=== PATIENT | male | born 1940 | race Caucasian/White ===

== ENCOUNTER 2017-07-21 19:38 | Emergency (ER) | payer OTHER, MEDICARE, SELFPAY | END 2017-07-21 21:39 | disposition home or self-care (01) | PROVIDERS: Emergency Provider Emergency Medicine; Family Provider Family Medicine; Visit Provider Emergency Medicine | DX: S09.90XA Unspecified injury of head, initial encounter (principal); S00.81XA Abrasion of other part of head, initial encounter; S00.83XA Contusion of other part of head, initial encounter; I10 Essential (primary) hypertension; K21.9 Gastro-esophageal reflux disease without esophagitis; Z79.899 Other long term (current) drug therapy; V03.00XA Pedestrian on foot injured in collision with car, pick-up truck or van in nontraffic accident, initial encounter; Y92.481 Parking lot as the place of occurrence of the external cause | CPT/HCPCS: 70450; 70486; 72125; 81001; 99283 ==

== ENCOUNTER → 2018-08-29 13:05 | Outpatient (POV) | payer MEDICARE, OTHER, SELFPAY | PROVIDERS: Visit Provider Dermatology | DX: Z00.00 Encounter for general adult medical examination without abnormal findings (principal) ==

== ENCOUNTER → 2018-09-27 14:42 | Outpatient (CLI) | payer MEDICARE, OTHER, SELFPAY ==
--- NOTE | 2018-09-27 14:49 | XR_ITS ---
XR chest 2V HISTORY: Hypertension ITS.REASON: HTN, PRE OP ORDERING PHYSICIAN: Kelsey Graff MD PATIENT AGE: 78 years COMPARISON: 10/07/2016 FINDINGS: The cardiomediastinal silhouette and pulmonary vascularity are within normal limits. The lungs are clear without infiltrates, suspicious nodules, or pleural effusions. Hypertrophic/arthritic changes are present involving the right acromioclavicular joint. There is ankylosis of the thoracic spine. IMPRESSION: 1. No acute finding. 2. Degenerative changes of the thoracic spine and right shoulder
== END ==
PROVIDERS: PCP Emergency Medicine; Visit Provider Emergency Medicine
DX: Z01.818 Encounter for other preprocedural examination (principal)
CPT/HCPCS: 71046; 93005

== ENCOUNTER 2018-11-16 14:35 | Inpatient (IN) ==
--- NOTE | 2018-11-16 15:22 | History & Physical Report ---
*Admission Date: 11/16/18 *Chief complaint: shortness of breath *History of present illness: Patient is a 78 year old male presented to our office with shortness of breath that is ongoing for the past 2 days with worsening nature today. He mentioned that he had to stop multiple times today before he presented to our office from the parking lot. 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 His oxygen saturation at our office was 85-88% RA and he was put on 4L of oxygen in order to maintain oxygen saturation of 90%. He denied having any nausea, vomiting, diarrhea but mentioned that his food is not tasting right for him for the past few days. He is known to be in remission from his stage I colon cancer s/p hemicolectomy. His last surveillance was in 2016 and was WNL. He is due for another colonoscopy this year. Given his high risk factors for PE and that his Wells score was 8.5, patient was admitted to the hospital and PE workup was initiated. He was also given initial dose of Lovenox while awaiting for CT results. [facility] History I have reviewed the patient's past medical history: Yes Medical History: Reports:: Gall Bladder Disease, Gastroesophageal Reflux Disease(GERD), Hypertension *Have you ever received a pneumonia vaccine?: Yes (2016 Prevnar ) *Have you received a flu vaccine this season?: No (pt decision) Other Medical History: Reports: Arthritis, Other (colon cancer, melanoma of nose) Laterality Cases: Right: Other (right hemicolectomy), Bilateral: Cataract Other Surgeries: Yes: Appendectomy, Cholecystectomy - *Social History Smoking Status: Never smoker Alcohol Intake: never *Occupational Status:: retired *Travel in the last 8 weeks: None - Psychiatric History Expresses thoughts of harming self/others: None Suicide Plan Description: No Plan Family Hx:: No significant family history Review of Systems - Constitutional Reports malaise, Reports weakness - Eyes Denies blurry vision - ENT Denies abnormal hearing, Denies dizziness, Denies nasal congestion - *Cardiovascular Reports shortness of breath, Reports shortness of breath with activity, Reports leg swelling (right +1 edema), Denies chest pain, Denies chest pain at rest, Denies chest pain with activity, Denies irregular heart rhythm - *Respiratory Reports cough, Denies change in phlegm color, Denies chest congestion - *Gastrointestinal Reports heartburn, Denies abdominal pain, Denies belching - *Genitourinary Denies difficulty urinating, Denies difficulty with ejaculations - *Musculoskeletal Reports joint pain (multiple), Denies abnormal walking - Integumentary/Breasts Reports other (s/p biopsied lesion on left nose), Denies hair loss, Denies changing lesions - *Neurologic Denies abnormal walking, Denies abnormal hearing, Denies abnormal movements - Psychiatric Denies abnormal sleep pattern - Endocrine Denies cold intolerance, Denies excessive sweating - Hematologic/Lymphatic Denies easy bleeding, Denies easy bruising - Allergic/Immunologic Denies GI upset with certain foods Meds Allergies Allergy/AdvReac Type Severity Reaction Status Date / Time No Known Allergies Allergy Unverified 07/21/17 19:50 Exam - *Routine HEENT Exam Head: Present: normocephalic Eye: Present: EOMI, PERRL ENT: Present: mucous membranes moist - *Routine Neck Exam Present: supple. Absent: lymphadenopathy - *Routine Respiratory Exam Present: CTA bilaterally, respiratory distress (85% on RA) - *Routine Cardiovascular Exam Present: Normal S1, Normal S2, tachycardia - *Routine Abdominal Exam Present: soft, normoactive bowel sounds. Absent: tenderness - *Routine Extremities Exam Present: edema (right lower leg), normal capillary refill - *Routine Skin Exam Present: erythema, lesions (left nose) - *Routine Neurological Exam Present: alert, oriented X3 Assessment and Plan (1) Acute respiratory failure with hypoxia Current visit: Yes Status: Acute Category: Medical Code(s): J96.01 - Acute respiratory failure with hypoxia (2) At high risk for pulmonary embolism Current visit: Yes Status: Acute Category: Medical Code(s): Z91.89 - Other specified personal risk factors, not elsewhere classified (3) Essential hypertension Current visit: Yes Status: Acute Category: Medical Code(s): I10 - Essential (primary) hypertension (4) Hx of colon cancer, stage I Current visit: Yes Status: Acute Category: Medical Code(s): Z85.038 - Personal history of other malignant neoplasm of large intestine (5) Melanoma in situ of nose Current visit: Yes Status: Acute Category: Medical Code(s): D03.39 - Melanoma in situ of other parts of face (6) GERD (gastroesophageal reflux disease) Current visit: Yes Status: Acute Category: Medical Code(s): K21.9 - Gastro-esophageal reflux disease without esophagitis (7) Leg edema, right Current visit: Yes Status: Acute Category: Medical Code(s): R60.0 - Localized edema - Assessment and plan all Dx Assessment and Plan for all problems:: lovenox x 1, will await CT results and US of leg. will provide oxygen supplementation; continue home meds.
[2018-11-16 15:48] LABS: Basophils % 0.1 % (0.1-2.0); Eosinophils % 0.4 % (0.1-12.0); Hematocrit 43.1 % (42.0-52.0); Hemoglobin 14.4 g/dL (14.1-18.0); Lymphocytes # 0.6 K/mm3 (0.7-4.5); Lymphocytes % 5.2 % (10-50); Mean Corpuscular HGB Conc 33.5 g/dL (31.8-35.4); Mean Corpuscular Hemoglobin 29.9 pg (27.0-31.2); Mean Corpuscular Volume 89.3 fl (80-94); Mean Platelet Volume 7.3 fl (7.4-10.4); Monocytes # 0.5 K/mm3 (0.1-1.0); Monocytes % 4.8 % (1.7-9.3); Neutrophils % 89.6 % (37.0-80.0); Platelet Count 212 K/mm3 (142-424); Red Blood Count 4.83 M/mm3 (4.60-6.20); Red Cell Distribution Width 13.1 % (11.5-17.5); White Blood Count 11.1 K/mm3 (4.8-10.8)
[2018-11-16 15:58] LABS: Albumin Level 2.8 gm/dL (3.4-5.0); Albumin/Globulin Ratio 0.7 (1.1-1.8); Anion Gap 14.5 mEq/L (5-15); Bilirubin,Total 0.9 mg/dL (0.2-1.0); Globulin 4.3 gm/dl (1.3-3.2); Potassium 4.5 mmoL/L (3.5-5.1); Total Protein,Serum 7.1 gm/dL (6.4-8.2)
[2018-11-16 16:04] LABS: ABG Base Excess -2.5 mmol/L (-2.4-2.3); ABG HCO3 21.1 mmhg (22.0-26.0); ABG Oxygen Saturation 94 % (90-100); ABG PCO2 29.3 mmhg (35.0-45.0); ABG PH 7.48 mmol/L (7.35-7.45); ABG PO2 66.6 mmhg (80-100)
--- NOTE | 2018-11-16 16:05 | Non-Invasive Vascular Report ---
"Venous Exam Indications: 415.19 Other pulmonary embolism and infarction. 786.05 Shortness of breath. IMPRESSIONS 1. There is no evidence of significant Reflux. 2. No evidence of deep or superficial vein thrombosis involving the right lower extremity Right lower extremity venous duplex evaluation. Doppler flow study including spectral analysis, color and méndez scale imaging. Location: Bedside. Patient status: Inpatient. CRITICAL FINDINGS - Reported to: Carolina MOORE - Read back and verified. - 11/16/18 - 1600 - None Tables: Venous flow and imaging: + +-------+ + |Location |Overall|Flow properties | + +-------+ + |Right common femoral |Patent |Normal phasicity; spontaneous; | | | |normal augmentation; compressible| + +-------+ + |Right saphenofemoral junction|Patent |Compressible | + +-------+ + |Right profunda femoral |Patent |Compressible | + +-------+ + |Right femoral |Patent |Normal phasicity; spontaneous; | | | |normal augmentation; compressible| + +-------+ + |Right greater saphenous |Patent |Normal phasicity; spontaneous; | | | |normal augmentation; compressible| + +-------+ + |Right popliteal |Patent |Normal phasicity; spontaneous; | | | |normal augmentation; compressible| + +-------+ + |Right posterior tibial |Patent |Compressible | + +-------+ + |Right peroneal |Patent |Compressible | + +-------+ + |Right gastrocnemius |Patent |Compressible | + +-------+ + |Right soleal |Patent |Compressible | + +-------+ + (Report amended ) Electronically signed by: Shin Chiang [id number]"
[2018-11-16 16:06] LABS: Allen's Test ACCEPTABLE; Oxygen 4 LPM %
[2018-11-16 16:23] LABS: Lymphocytes % 6 % (10-50); Monocytes % 4 % (2-9); Neutrophils % 90 % (42-76); RBC Morphology Normal; Total Cells Counted 100
--- NOTE | 2018-11-16 16:23 | Pharmacy Consult Notes ---
[facility] Pharmacy VTE Monitoring - Patient Demographics Admission date: 11/16/18 Report Date: 11/16/18 Time: 16:22 Allergies/Adverse Reactions: Patient Allergies No Known Allergies Allergy (Unverified 07/21/17 19:50) Height: 1.85 m Weight: 99.393 kg Patient Problems: Current Active Problems (Updated 11/18/18 @ 10:39 by Kelsey Unger MD) At high risk for pulmonary embolism (Acute) Acute respiratory failure with hypoxia (Acute) Essential hypertension (Acute) Hx of colon cancer, stage I (Acute) Melanoma in situ of nose (Acute) GERD (gastroesophageal reflux disease) (Acute) Leg edema, right (Acute) Bilateral pneumonia (Acute) Bilateral pulmonary embolism (Acute) Candidal pneumonia (Acute) - VTE Risk Labs: VTE Related Lab Results Hgb 14.4 g/dL (14.1-18.0) 11/16/18 15:30 Hct 43.1 % (42.0-52.0) 11/16/18 15:30 Plt Count 212 K/mm3 (142-424) 11/16/18 15:30 BUN 17 mg/dL (7-18) 11/16/18 15:30 Creatinine 1.22 mg/dL (0.70-1.30) 11/16/18 15:30 Estimated Creat Clear 70 mL/min (50-200) 11/16/18 15:30 Clinical Trial Participant: No - Prophylaxis VTE Prophylaxis Ordered?: Yes Types of VTE Prophylaxis: Pharmacological Location of Applied Device: Not Applicable Pharmacologic Type: Enoxaparin - VTE Diagnosis Confirmed Treatment or plan recommended: Add other medication Warfarin counseling provided if indicated?: No (DISCHARGED ON XARELTO) Bridge therapy started inpt?: No (DISCHARGED ON XARELTO)
[2018-11-17 07:20] LABS: Basophils % 0.3 % (0.1-2.0); Eosinophils # 0.2 K/mm3 (0.0-0.4); Lymphocytes # 0.9 K/mm3 (0.7-4.5); Mean Corpuscular Volume 87.9 fl (80-94); Red Cell Distribution Width 13.2 % (11.5-17.5)
[2018-11-17 07:29] LABS: Eosinophils % 2.5 % (0.1-12.0); Hematocrit 36.9 % (42.0-52.0); Lymphocytes % 12.7 % (10-50); Mean Corpuscular HGB Conc 34.1 g/dL (31.8-35.4); Mean Corpuscular Hemoglobin 29.9 pg (27.0-31.2); Monocytes # 0.4 K/mm3 (0.1-1.0); Monocytes % 5.8 % (1.7-9.3); Neutrophils # 5.8 K/mm3 (1.8-7.8); Neutrophils % 78.7 % (37.0-80.0); Platelet Count 163 K/mm3 (142-424); White Blood Count 7.4 K/mm3 (4.8-10.8)
[2018-11-17 07:31] LABS: Hemoglobin 12.6 g/dL (14.1-18.0)
[2018-11-17 07:53] LABS: Albumin Level 2.2 gm/dL (3.4-5.0); Albumin/Globulin Ratio 0.6 (1.1-1.8); Anion Gap 12.9 mEq/L (5-15); Bilirubin,Total 0.6 mg/dL (0.2-1.0); Calcium 8.3 mg/dL (8.5-10.1); Globulin 3.6 gm/dl (1.3-3.2); Potassium 3.9 mmoL/L (3.5-5.1); Total Protein,Serum 5.8 gm/dL (6.4-8.2)
--- NOTE | 2018-11-17 08:24 | Progress Note ---
<Mis Burrell - Last Filed: 11/17/18 08:21> Internal Medicine - PN: Subj *Date: 11/17/18 *Time: 08:21 Interval history: Patient states he is feeling about the same today. He is still short of breath. He states he slept off and on throughout the night. He ate a minimal amount of breakfast. Exam Vital signs and Labs for Last 24 Hours: Temp Pulse Resp BP Pulse Ox 98.3 F 87 18 151/73 H 91 L 11/17/18 08:00 11/17/18 08:00 11/17/18 08:00 11/17/18 08:00 11/17/18 08:02 Laboratory Results - last 24 hr 11/16/18 15:11: Specimen Source R. radial, O2 % 4 lpm, ABG pH 7.48 H, ABG pCO2 29.3 L, ABG pO2 66.6 L, ABG HCO3 21.1 L, ABG Total CO2 22.0 L, ABG O2 Saturation 94, ABG Base Excess -2.5 L, Shin Test Acceptable 11/16/18 15:30: WBC 11.1 H, RBC 4.83, Hgb 14.4, Hct 43.1, MCV 89.3, MCH 29.9, MCHC 33.5, RDW 13.1, Plt Count 212, MPV 7.3 L, Neut % (Auto) 89.6 H, Lymph % (Auto) 5.2 L, King % (Auto) 4.8, Eos % (Auto) 0.4, Baso % (Auto) 0.1, Neut # (Auto) 10.0 H, Lymph # (Auto) 0.6 L, King # (Auto) 0.5, Eos # (Auto) 0.0, Baso # (Auto) 0.0, Total Counted 100, Neutrophils % (Manual) 90 H, Lymphocytes % (Manual) 6 L, Monocytes % (Manual) 4, Platelet Estimate Normal, RBC Morphology Normal 11/16/18 15:30: Lactate 1.0 11/16/18 15:30: Sodium 133 L, Potassium 4.5, Chloride 98, Carbon Dioxide 25, Anion Gap 14.5, BUN 17, Creatinine 1.22, Estimated Creat Clear 70, Estimated GFR 57 L, Est GFR ( Amer) 70, Glucose 116 H, Calcium 9.0, Total Bilirubin 0.9, AST 35, ALT 57, Alkaline Phosphatase 80, Total Protein 7.1, Albumin 2.8 L, Globulin 4.3 H, Albumin/Globulin Ratio 0.7 L 11/16/18 15:30: Mycoplasma pneumon IgM Non-reactive 11/17/18 07:08: WBC 7.4 D, RBC 4.20 L, Hgb 12.6 L D, Hct 36.9 L, MCV 87.9, MCH 29.9, MCHC 34.1, RDW 13.2, Plt Count 163, MPV 7.0 L, Neut % (Auto) 78.7, Lymph % (Auto) 12.7, King % (Auto) 5.8, Eos % (Auto) 2.5, Baso % (Auto) 0.3, Neut # (Auto) 5.8, Lymph # (Auto) 0.9, King # (Auto) 0.4, Eos # (Auto) 0.2, Baso # (Auto) 0.0 11/17/18 07:08: Sodium 136, Potassium 3.9, Chloride 102, Carbon Dioxide 25, Anion Gap 12.9, BUN 13, Creatinine 1.10, Estimated Creat Clear 79, Estimated GFR 65, Est GFR ( Amer) 78, Glucose 96, Calcium 8.3 L, Total Bilirubin 0.6, AST 28, ALT 50, Alkaline Phosphatase 65, Total Protein 5.8 L, Albumin 2.2 L D, Globulin 3.6 H, Albumin/Globulin Ratio 0.6 L I & O for Last 24 hours: Intake & Output 11/14/18 11/15/18 11/16/18 11/17/18 11:59 11:59 11:59 11:59 Intake Total 1000 / 1000 Output Total 700 / 700 Balance 300 / 300 Weight 222 lb 1 oz Radiology Reports for the Last 24 Hours: CTA IMPRESSION: 1. Acute bilateral pulmonary emboli as described above. 2. Bilateral pneumonia. Right upper lobe pneumonia. Right lower lobe pneumonia with volume loss and loculated effusion. Left lower lobe atelectasis or infiltrate with trace effusion Venous Doppler 1. There is no evidence of significant Reflux. 2. No evidence of deep or superficial vein thrombosis involving the right lower extremity - Constitutional no acute distress - *Routine Respiratory Exam Present: decreased breath sounds, CTA bilaterally - *Routine Cardiovascular Exam Present: RRR - *Routine Abdominal Exam Present: soft, normoactive bowel sounds. Absent: tenderness - *Routine Extremities Exam Absent: cyanosis, clubbing, edema - *Routine Skin Exam Present: warm. Absent: rash - *Routine Neurological Exam Present: alert, oriented X3 Assessment and Plan (1) Bilateral pulmonary embolism Current visit: Yes Status: Acute Category: Medical Code(s): I26.99 - Other pulmonary embolism without acute cor pulmonale (2) Bilateral pneumonia Current visit: Yes Status: Acute Category: Medical Code(s): J18.9 - Pneumonia, unspecified organism (3) Acute respiratory failure with hypoxia Current visit: Yes Status: Acute Category: Medical Code(s): J96.01 - Acute respiratory failure with hypoxia (4) At high risk for pulmonary embolism Current visit: Yes Status: Acute Category: Medical Code(s): Z91.89 - Other specified personal risk factors, not elsewhere classified (5) Essential hypertension Current visit: Yes Status: Acute Category: Medical Code(s): I10 - Essential (primary) hypertension (6) Hx of colon cancer, stage I Current visit: Yes Status: Acute Category: Medical Code(s): Z85.038 - Personal history of other malignant neoplasm of large intestine (7) Melanoma in situ of nose Current visit: Yes Status: Acute Category: Medical Code(s): D03.39 - Melanoma in situ of other parts of face (8) GERD (gastroesophageal reflux disease) Current visit: Yes Status: Acute Category: Medical Code(s): K21.9 - Gastro-esophageal reflux disease without esophagitis (9) Leg edema, right Current visit: Yes Status: Acute Category: Medical Code(s): R60.0 - Localized edema - Assessment and plan all Dx Assessment and Plan for all problems:: Patient's CTA was positive for bilateral PEs as well as bilateral pneumonia. He did receive Zithromax and Rocephin yesterday and has been continued only on Rocephin. Will await sputum cultures and may need to continue zithromax as well d/t bilateral pneumonia. He was also given a dose of Lovenox. Will discuss further care with Dr. Unger. He will need continued anticoagulation with xarelto. <Kelsey Unger - Last Filed: 11/17/18 09:49> Internal Medicine - PN: Subj *Date: 11/17/18 *Time: 09:45 Exam Vital signs and Labs for Last 24 Hours: Temp Pulse Resp BP Pulse Ox 98.3 F 87 18 151/73 H 91 L 11/17/18 08:00 11/17/18 08:00 11/17/18 08:00 11/17/18 08:00 11/17/18 08:02 Laboratory Results - last 24 hr 11/16/18 15:11: Specimen Source R. radial, O2 % 4 lpm, ABG pH 7.48 H, ABG pCO2 29.3 L, ABG pO2 66.6 L, ABG HCO3 21.1 L, ABG Total CO2 22.0 L, ABG O2 Saturation 94, ABG Base Excess -2.5 L, Shin Test Acceptable 11/16/18 15:30: WBC 11.1 H, RBC 4.83, Hgb 14.4, Hct 43.1, MCV 89.3, MCH 29.9, MCHC 33.5, RDW 13.1, Plt Count 212, MPV 7.3 L, Neut % (Auto) 89.6 H, Lymph % (Auto) 5.2 L, King % (Auto) 4.8, Eos % (Auto) 0.4, Baso % (Auto) 0.1, Neut # (Auto) 10.0 H, Lymph # (Auto) 0.6 L, King # (Auto) 0.5, Eos # (Auto) 0.0, Baso # (Auto) 0.0, Total Counted 100, Neutrophils % (Manual) 90 H, Lymphocytes % (Manual) 6 L, Monocytes % (Manual) 4, Platelet Estimate Normal, RBC Morphology Normal 11/16/18 15:30: Lactate 1.0 11/16/18 15:30: Sodium 133 L, Potassium 4.5, Chloride 98, Carbon Dioxide 25, Anion Gap 14.5, BUN 17, Creatinine 1.22, Estimated Creat Clear 70, Estimated GFR 57 L, Est GFR ( Amer) 70, Glucose 116 H, Calcium 9.0, Total Bilirubin 0.9, AST 35, ALT 57, Alkaline Phosphatase 80, Total Protein 7.1, Albumin 2.8 L, Globulin 4.3 H, Albumin/Globulin Ratio 0.7 L 11/16/18 15:30: Mycoplasma pneumon IgM Non-reactive 11/17/18 07:08: WBC 7.4 D, RBC 4.20 L, Hgb 12.6 L D, Hct 36.9 L, MCV 87.9, MCH 29.9, MCHC 34.1, RDW 13.2, Plt Count 163, MPV 7.0 L, Neut % (Auto) 78.7, Lymph % (Auto) 12.7, King % (Auto) 5.8, Eos % (Auto) 2.5, Baso % (Auto) 0.3, Neut # (Auto) 5.8, Lymph # (Auto) 0.9, King # (Auto) 0.4, Eos # (Auto) 0.2, Baso # (Auto) 0.0 11/17/18 07:08: Sodium 136, Potassium 3.9, Chloride 102, Carbon Dioxide 25, Anion Gap 12.9, BUN 13, Creatinine 1.10, Estimated Creat Clear 79, Estimated GFR 65, Est GFR ( Amer) 78, Glucose 96, Calcium 8.3 L, Total Bilirubin 0.6, AST 28, ALT 50, Alkaline Phosphatase 65, Total Protein 5.8 L, Albumin 2.2 L D, Globulin 3.6 H, Albumin/Globulin Ratio 0.6 L I & O for Last 24 hours: Intake & Output 11/14/18 11/15/18 11/16/18 11/17/18 11:59 11:59 11:59 11:59 Intake Total 1480 / 1480 Output Total 700 / 700 Balance 780 / 780 Weight 222 lb 1 oz Assessment and Plan (1) Acute respiratory failure with hypoxia Current visit: Yes Status: Acute Category: Medical Code(s): J96.01 - Acute respiratory failure with hypoxia (2) Bilateral pulmonary embolism Current visit: Yes Status: Acute Category: Medical Code(s): I26.99 - Other pulmonary embolism without acute cor pulmonale (3) Bilateral pneumonia Current visit: Yes Status: Acute Category: Medical Code(s): J18.9 - Pneumonia, unspecified organism (4) At high risk for pulmonary embolism Current visit: Yes Status: Acute Category: Medical Code(s): Z91.89 - Other specified personal risk factors, not elsewhere classified (5) Essential hypertension Current visit: Yes Status: Acute Category: Medical Code(s): I10 - Essential (primary) hypertension (6) Hx of colon cancer, stage I Current visit: Yes Status: Acute Category: Medical Code(s): Z85.038 - Personal history of other malignant neoplasm of large intestine (7) Melanoma in situ of nose Current visit: Yes Status: Acute Category: Medical Code(s): D03.39 - Melanoma in situ of other parts of face (8) GERD (gastroesophageal reflux disease) Current visit: Yes Status: Acute Category: Medical Code(s): K21.9 - Gastro -esophageal reflux disease without esophagitis (9) Leg edema, right Current visit: Yes Status: Acute Category: Medical Code(s): R60.0 - Localized edema - Assessment and plan all Dx Assessment and Plan for all problems:: continue xarelto for bilateral PE; continue rocephin and azithromycin for bilateral CAP; oxygen supplementation for acute resp failure. Might need home oxygen approved given his severity of resp failure. possible d/c 2-3 days.
--- NOTE | 2018-11-17 11:24 | Cardiology Report ---
PROCEDURE: 2-D M-mode and color Doppler study INDICATIONS FOR THE TEST: Chest pain COPD Heart Murmur Tobacco Smoking Palpitations Fatigue Syncope Edema Hypertension+Diabetes Mellitus Rheumatic Fever SOB+CROWE+Obesity Hyperlipidemia Family History HD Additional History Respiratory failure, bilateral PE's PATIENT INFORMATION HEIGHT: 73 WEIGHT: 219 GENDER: Male B/P: 174/71 2-D/M-MODE INTERPRETATION: 2-D MEASUREMENTS OBSERVED VALUES IN CMS Right Ventricular Dimension (RVDd) 2.8 Interventricular Septum (Thickness)(IVsd) 1.7 Left Ventricular Internal Dimensions(LVIDd) 2.8 Left Ventricular Posterior Wall (Thickness)(LVPWd) 1.7 Aortic Root 3.4 Aortic Cusp Separation 2.0 Left Atrial Dimensions (LAD) 4.1 2D 1. Technically difficult study because of the patient's factor and poor acoustic windows 2. Left atrium is mildly enlarged, left ventricle is normal size, mild concentric left ventricular hypertrophy, visually estimated ejection fraction 55% with no regional wall motion abnormality. 3. The right atrium and right ventricle are mildly enlarged with normal contractility. 4. The aortic valve is minimally thickened and fibrosed. 5. The mitral and tricuspid valvular grossly normal. 6. The pulmonic valve is poorly present. 7. No significant pericardial effusion noted. DOPPLER INTERROGATION: Doppler interrogation of the aortic, mitral and tricuspid valvular presence of mild mitral and tricuspid regurgitation, tricuspid regurgitation jet velocity is inadequate for calculation of the right ventricular systolic pressure, diastolic parameters are inconclusive. CONCLUSION: 1. Technically difficult study because of the patient's factors and poor acoustic windows 2. Mildly enlarged left atrium, normal left ventricular size, mild concentric left ventricular hypertrophy, visually estimated ejection fraction 55% with no regional wall motion abnormality, diastolic parameters are inconclusive. 3. Mildly enlarged right ventricle with normal contractility. 4. Mild mitral and tricuspid regurgitation, tricuspid regurgitant jet velocity is inadequate for calculation of the right ventricular systolic pressure. 5. No significant pericardial effusion noted.
[2018-11-18 07:24] LABS: Basophils % 0.3 % (0.1-2.0); Eosinophils # 0.3 K/mm3 (0.0-0.4); Eosinophils % 3.8 % (0.1-12.0); Hematocrit 36.9 % (42.0-52.0); Hemoglobin 12.4 g/dL (14.1-18.0); Lymphocytes # 0.8 K/mm3 (0.7-4.5); Lymphocytes % 10.8 % (10-50); Mean Corpuscular HGB Conc 33.5 g/dL (31.8-35.4); Mean Corpuscular Hemoglobin 29.7 pg (27.0-31.2); Mean Corpuscular Volume 88.7 fl (80-94); Mean Platelet Volume 7.2 fl (7.4-10.4); Monocytes # 0.5 K/mm3 (0.1-1.0); Monocytes % 6.3 % (1.7-9.3); Neutrophils # 5.9 K/mm3 (1.8-7.8); Neutrophils % 78.8 % (37.0-80.0); Platelet Count 168 K/mm3 (142-424); Red Blood Count 4.16 M/mm3 (4.60-6.20); Red Cell Distribution Width 13.4 % (11.5-17.5); White Blood Count 7.5 K/mm3 (4.8-10.8)
[2018-11-18 07:44] LABS: Albumin Level 2.1 gm/dL (3.4-5.0); Albumin/Globulin Ratio 0.6 (1.1-1.8); Anion Gap 11.1 mEq/L (5-15); Bilirubin,Total 0.6 mg/dL (0.2-1.0); Calcium 8.4 mg/dL (8.5-10.1); Globulin 3.5 gm/dl (1.3-3.2); Potassium 4.1 mmoL/L (3.5-5.1); Total Protein,Serum 5.6 gm/dL (6.4-8.2)
--- NOTE | 2018-11-18 10:35 | Progress Note ---
Internal Medicine - PN: Subj *Date: 11/18/18 *Time: 10:21 Interval history: Patient mentioned that he had a good night sleep yesterday compared to the other nights he has been here. He mentioned that his breathing got a little worse last night to high 80s. However this morning his oxygen saturation is 94% at 4 L of nasal cannula. Exam Vital signs and Labs for Last 24 Hours: Temp Pulse Resp BP Pulse Ox 98.4 F 88 19 131/61 94 L 11/18/18 08:00 11/18/18 08:00 11/18/18 08:00 11/18/18 08:00 11/18/18 08:05 Laboratory Results - last 24 hr 11/18/18 06:20: WBC 7.5, RBC 4.16 L, Hgb 12.4 L, Hct 36.9 L, MCV 88.7, MCH 29.7, MCHC 33.5, RDW 13.4, Plt Count 168, MPV 7.2 L, Neut % (Auto) 78.8, Lymph % (Auto) 10.8, [place] % (Auto) 6.3, Eos % (Auto) 3.8, Baso % (Auto) 0.3, Neut # (Auto) 5.9, Lymph # (Auto) 0.8, Will # (Auto) 0.5, Eos # (Auto) 0.3, Baso # (Auto) 0.0 11/18/18 06:20: Sodium 135 L, Potassium 4.1, Chloride 103, Carbon Dioxide 25, Anion Gap 11.1, BUN 9 D, Creatinine 1.11, Estimated Creat Clear 79, Estimated GFR 64, Est GFR ( Amer) 78, Glucose 93, Calcium 8.4 L, Total Bilirubin 0.6, AST 28, ALT 51, Alkaline Phosphatase 70, Total Protein 5.6 L, Albumin 2.1 L , Globulin 3.5 H, Albumin/Globulin Ratio 0.6 L I & O for Last 24 hours: Intake & Output 11/15/18 11/16/18 11/17/18 11/18/18 11:59 11:59 11:59 11:59 Intake Total 1480 / 1480 3477 / 3477 Output Total 700 / 700 1050 / 1050 Balance 780 / 780 2427 / 2427 Weight 222 lb 1 oz 224 lb 4.8 oz Microbiology Reports for the Last 24 Hours: Microbiology 11/17/18 13:48 Sputum - Expectorated Sputum Gram Stain - Final - *Routine HEENT Exam Head: Present: normocephalic Eye: Present: EOMI, PERRL ENT: Present: mucous membranes moist - *Routine Neck Exam Present: supple. Absent: lymphadenopathy - *Routine Respiratory Exam Present: decreased breath sounds (on 4 L of nasal cannula), distant breath sounds. Absent: accessory muscle use - *Routine Cardiovascular Exam Present: Normal S1, Normal S2, tachycardia - *Routine Abdominal Exam Present: soft, normoactive bowel sounds. Absent: tenderness - *Routine Extremities Exam Absent: cyanosis, clubbing, edema - *Routine Skin Exam Present: warm. Absent: rash - *Routine Neurological Exam Present: alert, oriented X3 Assessment and Plan (1) Acute respiratory failure with hypoxia Current visit: Yes Status: Acute Category: Medical Code(s): J96.01 - Acute respiratory failure with hypoxia (2) Bilateral pulmonary embolism Current visit: Yes Status: Acute Category: Medical Code(s): I26.99 - Other pulmonary embolism without acute cor pulmonale (3) Bilateral pneumonia Current visit: Yes Status: Acute Category: Medical Code(s): J18.9 - Pneumonia, unspecified organism (4) At high risk for pulmonary embolism Current visit: Yes Status: Acute Category: Medical Code(s): Z91.89 - Other specified personal risk factors, not elsewhere classified (5) Essential hypertension Current visit: Yes Status: Acute Category: Medical Code(s): I10 - Essential (primary) hypertension (6) Hx of colon cancer, stage I Current visit: Yes Status: Acute Category: Medical Code(s): Z85.038 - Personal history of other malignant neoplasm of large intestine (7) Melanoma in situ of nose Current visit: Yes Status: Acute Category: Medical Code(s): D03.39 - Melanoma in situ of other parts of face (8) GERD (gastroesophageal reflux disease) Current visit: Yes Status: Acute Category: Medical Code(s): K21.9 - Gastro-esophageal reflux disease without esophagitis (9) Leg edema, right Current visit: Yes Status: Acute Category: Medical Code(s): R60.0 - Localized edema (10) Candidal pneumonia Current visit: Yes Status: Acute Category: Medical Code(s): B37.1 - Pulmonary candidiasis - Assessment and plan all Dx Assessment and Plan for all problems:: Continue Xarelto for bilateral PE, continue antibiotics for bilateral pneumonia, started fluconazole for possible Hillary infection, consistent with sputum culture. Will provide oxygen supplementation. Will focus on weaning his oxygen off as needed to maintain oxygen saturation above 90%Discussed extensively about risk and benefits of being on Xarelto indefinitely. Patient and his at bedside voiced understanding to all the above.
[2018-11-19 07:16] LABS: Basophils % 0.2 % (0.1-2.0); Eosinophils # 0.3 K/mm3 (0.0-0.4); Eosinophils % 4.2 % (0.1-12.0); Hematocrit 39.3 % (42.0-52.0); Lymphocytes % 13.6 % (10-50); Mean Corpuscular HGB Conc 32.9 g/dL (31.8-35.4); Mean Corpuscular Hemoglobin 29.3 pg (27.0-31.2); Mean Corpuscular Volume 88.8 fl (80-94); Monocytes # 0.4 K/mm3 (0.1-1.0); Monocytes % 5.5 % (1.7-9.3); Neutrophils # 5.5 K/mm3 (1.8-7.8); Neutrophils % 76.4 % (37.0-80.0); Platelet Count 200 K/mm3 (142-424); Red Blood Count 4.43 M/mm3 (4.60-6.20); Red Cell Distribution Width 13.1 % (11.5-17.5); White Blood Count 7.1 K/mm3 (4.8-10.8)
[2018-11-19 07:25] LABS: Albumin Level 2.3 gm/dL (3.4-5.0); Albumin/Globulin Ratio 0.6 (1.1-1.8); Bilirubin,Total 0.5 mg/dL (0.2-1.0); Calcium 8.7 mg/dL (8.5-10.1); Globulin 3.8 gm/dl (1.3-3.2); Total Protein,Serum 6.1 gm/dL (6.4-8.2)
--- NOTE | 2018-11-19 10:21 | Progress Note ---
Internal Medicine - PN: Subj *Date: 11/19/18 *Time: 10:06 Interval history: Patient doing well today. He mentioned that he is breathing is a lot better today. He is down to 2.5 L of nasal cannula. Exam Vital signs and Labs for Last 24 Hours: Temp Pulse Resp BP Pulse Ox 97.7 F 68 19 149/74 H 95 11/19/18 08:00 11/19/18 08:00 11/19/18 08:00 11/19/18 08:00 11/19/18 08:00 Laboratory Results - last 24 hr 11/19/18 06:10: WBC 7.1, RBC 4.43 L, Hgb 13.0 L, Hct 39.3 L, MCV 88.8, MCH 29.3, MCHC 32.9, RDW 13.1, Plt Count 200, MPV 7.0 L, Neut % (Auto) 76.4, Lymph % (Auto) 13.6, [place] % (Auto) 5.5, Eos % (Auto) 4.2, Baso % (Auto) 0.2, Neut # (Auto) 5.5, Lymph # (Auto) 1.0, [place] # (Auto) 0.4, Eos # (Auto) 0.3, Baso # (Auto) 0.0 11/19/18 06:10: Sodium 134 L, Potassium 4.0, Chloride 103, Carbon Dioxide 25, Anion Gap 10.0, BUN 9, Creatinine 1.05, Estimated Creat Clear 83, Estimated GFR 68, Est GFR ( Amer) 83, Glucose 100, Calcium 8.7, Total Bilirubin 0.5, AST 30, ALT 54, Alkaline Phosphatase 75, Total Protein 6.1 L, Albumin 2.3 L, Globulin 3.8 H, Albumin/Globulin Ratio 0.6 L I & O for Last 24 hours: Intake & Output 11/16/18 11/17/18 11/18/18 11/19/18 11:59 11:59 11:59 11:59 Intake Total 1480 / 1480 3477 / 3477 3402 / 3402 Output Total 700 / 700 1050 / 1050 1325 / 1325 Balance 780 / 780 2427 / 2427 2077 / 207 Weight 222 lb 1 oz 224 lb 4.8 oz 223 lb Microbiology Reports for the Last 24 Hours: Microbiology 11/17/18 13:48 Sputum - Expectorated Sputum Gram Stain - Final 11/17/18 13:48 Sputum - Expectorated Sputum Sputum Culture - Preliminary 11/16/18 15:30 Blood Blood Culture - Preliminary NO GROWTH AFTER 48 HOURS 11/16/18 15:30 Blood Blood Culture - Preliminary NO GROWTH AFTER 48 HOURS - *Routine HEENT Exam Head: Present: normocephalic Eye: Present: EOMI, PERRL ENT: Present: mucous membranes moist - *Routine Neck Exam Present: supple. Absent: lymphadenopathy - *Routine Respiratory Exam Present: decreased breath sounds (Better than yesterday, on 2.5 L of nasal cannula for oxygen), CTA bilaterally - *Routine Cardiovascular Exam Present: Normal S1, Normal S2, tachycardia - *Routine Abdominal Exam Present: soft, normoactive bowel sounds. Absent: tenderness - *Routine Extremities Exam Absent: cyanosis, clubbing, edema - *Routine Skin Exam Present: warm. Absent: rash - *Routine Neurological Exam Present: alert, oriented X3 Assessment and Plan (1) Acute respiratory failure with hypoxia Current visit: Yes Status: Acute Category: Medical Code(s): J96.01 - Acute respiratory failure with hypoxia (2) Bilateral pulmonary embolism Current visit: Yes Status: Acute Category: Medical Code(s): I26.99 - Other pulmonary embolism without acute cor pulmonale (3) Bilateral pneumonia Current visit: Yes Status: Acute Category: Medical Code(s): J18.9 - Pneumonia, unspecified organism (4) At high risk for pulmonary embolism Current visit: Yes Status: Acute Category: Medical Code(s): Z91.89 - Other specified personal risk factors, not elsewhere classified (5) Essential hypertension Current visit: Yes Status: Acute Category: Medical Code(s): I10 - Essential (primary) hypertension (6) Hx of colon cancer, stage I Current visit: Yes Status: Acute Category: Medical Code(s): Z85.038 - Personal history of other malignant neoplasm of large intestine (7) Melanoma in situ of nose Current visit: Yes Status: Acute Category: Medical Code(s): D03.39 - Melanoma in situ of other parts of face (8) GERD (gastroesophageal reflux disease) Current visit: Yes Status: Acute Category: Medical Code(s): K21.9 - Gastro-esophageal reflux disease without esophagitis (9) Leg edema, right Current visit: Yes Status: Acute Category: Medical Code(s): R60.0 - Localized edema (10) Candidal pneumonia Current visit: Yes Status: Acute Category: Medical Code(s): B37.1 - Pulmonary candidiasis - Assessment and plan all Dx Assessment and Plan for all problems:: We will get him approved for home oxygen tomorrow. I will give him Xarelto samples just in case if he cannot afford this medication. Possible DC tomorrow to home with home health and home oxygen. He will need 3 more days of antibiotic treatment and 12 more days of fungal treatment. Discussed risks and benefits of all the treatment and management to patient and his at bedside during rounds this morning. They both voiced understanding.
[2018-11-20 07:29] LABS: Basophils % 0.2 % (0.1-2.0); Eosinophils # 0.3 K/mm3 (0.0-0.4); Eosinophils % 3.9 % (0.1-12.0); Hematocrit 40.8 % (42.0-52.0); Hemoglobin 13.7 g/dL (14.1-18.0); Lymphocytes # 0.9 K/mm3 (0.7-4.5); Lymphocytes % 10.7 % (10-50); Mean Corpuscular HGB Conc 33.5 g/dL (31.8-35.4); Mean Corpuscular Hemoglobin 29.8 pg (27.0-31.2); Mean Corpuscular Volume 88.8 fl (80-94); Monocytes # 0.5 K/mm3 (0.1-1.0); Monocytes % 5.7 % (1.7-9.3); Neutrophils # 6.6 K/mm3 (1.8-7.8); Neutrophils % 79.5 % (37.0-80.0); Platelet Count 236 K/mm3 (142-424); Red Cell Distribution Width 13.2 % (11.5-17.5); White Blood Count 8.3 K/mm3 (4.8-10.8)
[2018-11-20 07:42] LABS: Albumin Level 2.5 gm/dL (3.4-5.0); Albumin/Globulin Ratio 0.6 (1.1-1.8); Bilirubin,Total 0.4 mg/dL (0.2-1.0); Calcium 9.1 mg/dL (8.5-10.1); Globulin 4.1 gm/dl (1.3-3.2); Total Protein,Serum 6.6 gm/dL (6.4-8.2)
--- NOTE | 2018-11-20 07:55 | Progress Note ---
Internal Medicine - PN: Subj *Date: 11/20/18 *Time: 07:55 Exam Vital signs and Labs for Last 24 Hours: Temp Pulse Resp BP Pulse Ox 98.3 F 84 16 141/67 H 94 L 11/20/18 04:00 11/20/18 04:00 11/20/18 04:00 11/20/18 04:00 11/20/18 04:00 Laboratory Results - last 24 hr 11/20/18 07:02: WBC 8.3, RBC 4.60, Hgb 13.7 L, Hct 40.8 L, MCV 88.8, MCH 29.8, MCHC 33.5, RDW 13.2, Plt Count 236, MPV 7.0 L, Neut % (Auto) 79.5, Lymph % (Auto) 10.7, [place] % (Auto) 5.7, Eos % (Auto) 3.9, Baso % (Auto) 0.2, Neut # (Auto) 6.6, Lymph # (Auto) 0.9, [place] # (Auto) 0.5, Eos # (Auto) 0.3, Baso # (Auto) 0.0 11/20/18 07:02: Sodium 134 L, Potassium 4.0, Chloride 103, Carbon Dioxide 24, Anion Gap 11.0, BUN 8, Creatinine 1.02, Estimated Creat Clear 86, Estimated GFR 71, Est GFR ( Amer) 85, Glucose 110 H, Calcium 9.1, Total Bilirubin 0.4, AST 27, ALT 53, Alkaline Phosphatase 77, Total Protein 6.6, Albumin 2.5 L, Globulin 4.1 H, Albumin/Globulin Ratio 0.6 L I & O for Last 24 hours: Intake & Output 11/17/18 11/18/18 11/19/18 11/20/18 23:59 23:59 23:59 23:59 Intake Total 3761 / 3761 1916 / 1916 3642 / 3642 Output Total 1250 / 1250 1325 / 1325 1000 / 1000 650 / 650 Balance 2511 / 2511 591 / 591 2642 / 2642 -650 / -650 Weight 100.726 kg 101.741 kg 101.151 kg 102.087 kg Microbiology Reports for the Last 24 Hours: Microbiology 11/17/18 13:48 Sputum - Expectorated Sputum Gram Stain - Final 11/17/18 13:48 Sputum - Expectorated Sputum Sputum Culture - Preliminary Assessment and Plan (1) Acute respiratory failure with hypoxia Current visit: Yes Status: Acute Category: Medical Code(s): J96.01 - Acute respiratory failure with hypoxia (2) Bilateral pulmonary embolism Current visit: Yes Status: Acute Category: Medical Code(s): I26.99 - Other pulmonary embolism without acute cor pulmonale (3) Bilateral pneumonia Current visit: Yes Status: Acute Category: Medical Code(s): J18.9 - Pneumonia, unspecified organism (4) At high risk for pulmonary embolism Current visit: Yes Status: Acute Category: Medical Code(s): Z91.89 - Other specified personal risk factors, not elsewhere classified (5) Essential hypertension Current visit: Yes Status: Acute Category: Medical Code(s): I10 - Essential (primary) hypertension (6) Hx of colon cancer, stage I Current visit: Yes Status: Acute Category: Medical Code(s): Z85.038 - Personal history of other malignant neoplasm of large intestine (7) Melanoma in situ of nose Current visit: Yes Status: Acute Category: Medical Code(s): D03.39 - Melanoma in situ of other parts of face (8) GERD (gastroesophageal reflux disease) Current visit: Yes Status: Acute Category: Medical Code(s): K21.9 - Gastro-esophageal reflux disease without esophagitis (9) Leg edema, right Current visit: Yes Status: Acute Category: Medical Code(s): R60.0 - Localized edema (10) Candidal pneumonia Current visit: Yes Status: Acute Category: Medical Code(s): B37.1 - Pulmonary candidiasis The patient's infection will respond to the chosen ABx?: Yes Is the patient receiving the right drug, dose, and route?: Yes Could a more targeted ABx be ordered?: No (SPUTUM CX PENDING)
--- NOTE | 2018-11-20 08:32 | Discharge Summary ---
General - General Admission date:: 11/16/18 Discharge date: 11/20/18 HPI HPI: Patient is a 78 year old male presented to our office with shortness of breath that is ongoing for the past 2 days with worsening nature today. He mentioned that he had to stop multiple times today before he presented to our office from the parking lot. 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 His oxygen saturation at our office was 85-88% RA and he was put on 4L of oxygen in order to maintain oxygen saturation of 90%. He denied having any nausea, vomiting, diarrhea but mentioned that his food is not tasting right for him for the past few days. He is known to be in remission from his stage I colon cancer s/p hemicolectomy. His last surveillance was in 2015 and was WNL. He is due for another colonoscopy this year. Given his high risk factors for PE and that his Wells score was 8.5, patient was admitted to the hospital and PE workup was initiated. He was also given initial dose of Lovenox while awaiting for CT results. Hospital Course Hospital Course: Patient is a 78-year-old male who was admitted to our hospital directly from the clinic for acute hypoxic respiratory failure secondary to bilateral PE and bilateral pneumonia secondary to yeast and gram-positive cocci bacteria. He was given a shot of Lovenox 1 mg/kg dosing while waiting for the CT to confirm the diagnosis. He was then switched over to Xarelto 15 mg twice daily to treat his bilateral PE for the subsequent days in the hospital. Patient's oxygen saturation was maintained over 90% on 4 L oxygen for the first 2 to 3 days of his hospitalization. On the day of discharge he still was on 2 L of nasal cannula. His pneumonia was treated with azithromycin and Rocephin, and fluconazole. Patient started to feel better on day 3 of hospitalization. On 11/20/2018 patient felt much better unable to breathe with oxygen suppleme ntation. She was still requiring 2 L of oxygen via nasal cannula. Upon being medically stable but still requiring oxygen he was discharged home with the supplemental oxygen, Omnicef for 3 days, fluconazole for 12 more days, and Xarelto 15 mg twice daily to be taken until December 08 (samples for 3 weeks given to patient). He was then advised to switch over to Xarelto 20 mg daily for the rest of his life (samples for this strength with a co-pay card was given to patient as well). He had an extensive education about how to take his Xarelto at bedside with the patient. I also gave him an extensive education about oxygen use and the risk and benefits associated with it. He voiced understanding to all the above. 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 We will set up an appointment for his surveillance colonoscopy for his status post stage I colon cancer when he returns to office as an outpatient. Objective Vital signs: Temp Pulse Resp BP Pulse Ox 98.4 F 85 20 132/72 94 L 11/20/18 08:00 11/20/18 08:00 11/20/18 08:00 11/20/18 08:00 11/20/18 08:00 - *Routine HEENT Exam Head: Present: normocephalic Eye: Present: EOMI, PERRL ENT: Present: mucous membranes moist - *Routine Neck Exam Present: supple, full ROM - *Routine Respiratory Exam Present: CTA bilaterally (On 2 L of nasal canula). Absent: respiratory distress - *Routine Cardiovascular Exam Present: Normal S1, Normal S2, tachycardia (better, ranging on the 90s) - *Routine Abdominal Exam Present: soft, normoactive bowel sounds. Absent: tenderness - *Routine Extremities Exam Present: full ROM. Absent: edema - *Routine Skin Exam Present: intact. Absent: erythema, rash - *Routine Neurological Exam Present: alert, oriented X3 - Detailed Eye Exam Eyelids: Left normal inspection Results Completed studies during hospitalization [Text1]: CT of chest results IMPRESSION: 1. Acute bilateral pulmonary emboli as described above. 2. Bilateral pneumonia. Right upper lobe pneumonia. Right lower lobe pneumonia with volume loss and loculated effusion. Left lower lobe atelectasis or infiltrate with trace effusion Echocardiogram CONCLUSION: 1. Technically difficult study because of the patient's factors and poor acoustic windows 2. Mildly enlarged left atrium, normal left ventricular size, mild concentric left ventricular hypertrophy, visually estimated ejection fraction 55% with no regional wall motion abnormality, diastolic parameters are inconclusive. 3. Mildly enlarged right ventricle with normal contractility. 4. Mild mitral and tricuspid regurgitation, tricuspid regurgitant jet velocity is inadequate for calculation of the right ventricular systolic pressure. 5. No significant pericardial effusion noted. Venous Doppler of right IMPRESSIONS 1. There is no evidence of significant Reflux. 2. No evidence of deep or superficial vein thrombosis involving the right lower extremity Labs on day of discharge: Labs from last 24 hours 11/20/18 11/20/18 07:02 07:02 WBC 8.3 RBC 4.60 Hgb 13.7 L Hct 40.8 L MCV 88.8 MCH 29.8 MCHC 33.5 RDW 13.2 Plt Count 236 MPV 7.0 L Neut % (Auto) 79.5 Lymph % (Auto) 10.7 [place] % (Auto) 5.7 Eos % (Auto) 3.9 Baso % (Auto) 0.2 Neut # (Auto) 6.6 Lymph # (Auto) 0.9 [place] # (Auto) 0.5 Eos # (Auto) 0.3 Baso # (Auto) 0.0 Sodium 134 L Potassium 4.0 Chloride 103 Carbon Dioxide 24 Anion Gap 11.0 BUN 8 Creatinine 1.02 Estimated Creat Clear 86 Estimated GFR 71 Est GFR ( Amer) 85 Glucose 110 H Calcium 9.1 Total Bilirubin 0.4 AST 27 ALT 53 Alkaline Phosphatase 77 Total Protein 6.6 Albumin 2.5 L Globulin 4.1 H Albumin/Globulin Ratio 0.6 L Preliminary micro results at discharge 11/17/18 13:48 Sputum Culture - Preliminary Sputum - Expectorated Sputum 11/16/18 15:30 Blood Culture - Preliminary Blood NO GROWTH AFTER 48 HOURS 11/16/18 15:30 Blood Culture - Preliminary Blood NO GROWTH AFTER 48 HOURS DS: Diagnosis - Discharge Diagnosis (1) Acute respiratory failure with hypoxia Status: Acute (2) Bilateral pulmonary embolism Status: Acute (3) Bilateral pneumonia Status: Acute (4) At high risk for pulmonary embolism Status: Acute (5) Essential hypertension Status: Acute (6) Hx of colon cancer, stage I Status: Acute (7) Melanoma in situ of nose Status: Acute (8) GERD (gastroesophageal reflux disease) Status: Acute (9) Leg edema, right Status: Acute (10) Candidal pneumonia Status: Acute Discharge Plan - Patient Discharge Instructions ACTIVITY: Ambulate as tolerated DIET: continue same diet Patient Instructions: Pulmonary Embolism, DI for Pneumonia -- Adult, DI for Respiratory Failure, DI for Hypoxia - Follow up Plan Follow up with: Kelsey Unger MD [Primary Care Provider] - (on December 01 with me) Disposition: Home, Self-[facility] Medications: Home Medications Medication Instructions Recorded Confirmed Type Amlodipine Besylate [Amlodipine 5 mg PO DAILY 11/16/18 11/16/18 History 5mg tab] Benazepril HCl 20 mg PO DAILY 11/16/18 11/16/18 History Fluticasone Propionate 2 spry NS DAILY 11/16/18 11/16/18 History Ketoconazole [Ketoconazole 2% 1 each TP BID 11/16/18 11/16/18 History Cream 15gm] Omeprazole [Omeprazole 40mg 40 mg PO DAILY 11/16/18 11/16/18 History Capsule] metHOTREXate sodium [metHOTREXate 15 mg PO WEEKLY 11/16/18 11/16/18 History 2.5mg Tablet] predniSONE [Prednisone 5mg 10 mg PO DAILY 11/16/18 11/16/18 History Tab] Cefdinir [Omnicef 300mg Capsule] 300 mg PO BID 3 Days #6 cap 11/20/18 Rx Fluconazole [Diflucan 200mg tablet] 200 mg PO DAILY #12 tab 11/20/18 Rx Miscellaneous Medical Supply 1 each IH CONT #1 device 11/20/18 Rx [Oxygen, Portable] Rivaroxaban [Xarelto 20mg Tablet] 20 mg PO DAILY 30 Days #30 tab 11/20/18 Rx Prescriptions/Medication Reconciliation: New Rivaroxaban [Xarelto 15mg tablet] 15 mg PO BIDWM tablet Cefdinir [Omnicef 300mg Capsule] 300 mg PO BID 3 Days #6 cap Rivaroxaban [Xarelto 20mg Tablet] 20 mg PO DAILY 30 Days #30 tab Miscellaneous Medical Supply [Oxygen, Portable] 1 each IH CONT #1 device Fluconazole [Diflucan 200mg tablet] 200 mg PO DAILY #12 tab Continued Benazepril HCl 20 mg PO DAILY Amlodipine Besylate [Amlodipine 5mg tab] 5 mg PO DAILY Fluticasone Propionate 2 spry NS DAILY Omeprazole [Omeprazole 40mg Capsule] 40 mg PO DAILY Ketoconazole [Ketoconazole 2% Cream 15gm] 1 each TP BID Discontinued metHOTREXate sodium [metHOTREXate 2.5mg Tablet] 15 mg PO WEEKLY predniSONE [Prednisone 5mg Tab] 10 mg PO DAILY
== END 2018-11-20 12:25 | disposition home or self-care (01) | DRG 175 ==
LOC: 2ND 15:02
PROVIDERS: ADMIT Emergency Medicine; ATTEND Emergency Medicine
CPT/HCPCS: 36415; 71275; 80053; 82803; 83605; 85007; 85025; 86713; 86738; 87040; 87070; 87205; 87899; 93005; 93306; 93971; 94640; 94761; J0456; Q9967

== ENCOUNTER → 2019-02-13 15:45 | Outpatient (POV) | payer MEDICARE, OTHER, SELFPAY | PROVIDERS: Visit Provider Dermatology | DX: Z00.00 Encounter for general adult medical examination without abnormal findings (principal) ==

== ENCOUNTER → 2019-04-16 16:05 | Outpatient (CLI) | payer MEDICARE, OTHER, SELFPAY ==
[2019-04-16 17:28] LABS: C-Reactive Protein < 0.2 mg/dL (0.0-0.9)
[2019-04-16 17:30] LABS: Erythrocyte Sedimentation Rate 6 mm/hr (0-20)
== END ==
PROVIDERS: Visit Provider Internal Medicine Rheumatology
DX: M05.79 Rheumatoid arthritis with rheumatoid factor of multiple sites without organ or systems involvement (principal)
CPT/HCPCS: 36415; 85651; 86140

== ENCOUNTER → 2019-05-15 08:04 | Outpatient (POV) | payer MEDICARE, OTHER, SELFPAY | PROVIDERS: Visit Provider Dermatology | DX: Z00.00 Encounter for general adult medical examination without abnormal findings (principal) ==

== ENCOUNTER → 2019-05-31 09:02 | Outpatient (CLI) | payer MEDICARE, OTHER, SELFPAY ==
--- NOTE | 2019-05-31 09:16 | CT_ITS ---
PROCEDURE: CT ANGIO CHEST CLINCIAL INDICATION: 6 MO FU BILAT PE COMPARISON: AGCHEST CT angio chest from 11/16/2018 TECHNIQUE: IV Contrast: 70ML OPTIRAY 350 Axial images obtained with sagittal and coronal reformats. All CT scans at the facility use one or more dose reduction, viz: automated exposure control, ma/kV adjustment per patient size (including targeted exams where dose is matched to indication, i.e. head), or iterative reconstruction technique. FINDINGS: No pulmonary emboli are evident at this time. Previously noted pulmonary emboli have resolved. The aorta has an unremarkable appearance. No mediastinal or hilar mass or adenopathy. The Previously noted areas of consolidation have improved with some mild residual parenchymal opacification in the right upper lobe laterally with some pleural thickening with atelectatic or fibrotic changes in the right and left lung base. There is mild prominence of the mid to lower esophagus with residual food particles. IMPRESSION: 1. Resolved bilateral pulmonary emboli. 2. Resolved right-sided pneumonia with atelectatic or fibrotic changes in both lower lung zones and right upper lobe Dictated by: Shin Chiang MD 06/01/2019 16:53 Electronically signed by Shin Chiang MD in [facility] 06/02/2019 06:02
[2019-05-31 10:42] LABS: Blood Urea Nitrogen 15 mg/dL (7-18); Creatinine,Serum 1.29 mg/dL (0.70-1.30); Estimated Glomerular Filt Rate 54 ml/min (>60); GFR (African American) 65 ML/MIN (>60)
== END ==
PROVIDERS: Family Medicine; Visit Provider Emergency Medicine
DX: I26.99 Other pulmonary embolism without acute cor pulmonale (principal)
CPT/HCPCS: 36415; 71275; 82565; 84520; Q9967

== ENCOUNTER → 2019-08-14 08:31 | Outpatient (POV) | payer MEDICARE, OTHER, SELFPAY | PROVIDERS: Visit Provider Dermatology | DX: Z00.00 Encounter for general adult medical examination without abnormal findings (principal) ==

== ENCOUNTER → 2020-01-18 09:45 | Outpatient (CLI) | payer MEDICARE, OTHER, SELFPAY ==
[2020-01-18 11:46] LABS: Coronavirus 19 IgG Antibody Negative (Negative); Coronavirus 19 IgM Antibody Negative (Negative)
== END ==
PROVIDERS: Visit Provider Family Medicine
DX: Z03.818 Encounter for observation for suspected exposure to other biological agents ruled out (principal)
CPT/HCPCS: 36415; 86328

== ENCOUNTER → 2020-01-29 09:04 | Outpatient (POV) | payer MEDICARE, OTHER, SELFPAY | PROVIDERS: PCP Family Medicine; Visit Provider Dermatology | DX: Z00.00 Encounter for general adult medical examination without abnormal findings (principal) ==

== ENCOUNTER → 2020-04-02 11:25 | Outpatient (CLI) | payer MEDICARE, OTHER, SELFPAY ==
[2020-04-02 12:04] LABS: Basophils % 0.4 % (0.1-2.0); Eosinophils # 0.4 K/mm3 (0.0-0.4); Eosinophils % 6.2 % (0.1-12.0); Hematocrit 45.8 % (42.0-52.0); Hemoglobin 15.8 g/dL (14.1-18.0); Lymphocytes # 1.3 K/mm3 (0.7-4.5); Lymphocytes % 18.2 % (10-50); Mean Corpuscular HGB Conc 34.5 g/dL (31.8-35.4); Mean Corpuscular Hemoglobin 31.2 pg (27.0-31.2); Mean Corpuscular Volume 90.3 fl (80-94); Mean Platelet Volume 7.9 fl (7.4-10.4); Monocytes # 0.5 K/mm3 (0.1-1.0); Monocytes % 7.2 % (1.7-9.3); Neutrophils # 4.9 K/mm3 (1.8-7.8); Platelet Count 178 K/mm3 (142-424); Red Blood Count 5.07 M/mm3 (4.60-6.20); Red Cell Distribution Width 12.8 % (11.5-17.5); White Blood Count 7.2 K/mm3 (4.8-10.8)
[2020-04-03 13:36] LABS: Covid-19 Nasal PCR Sendout Lex NOT DETECTED
== END ==
PROVIDERS: PCP Family Medicine; Visit Provider Physician Assistant
DX: Z03.818 Encounter for observation for suspected exposure to other biological agents ruled out (principal)
CPT/HCPCS: 85025; U0004

== ENCOUNTER → 2020-05-06 08:15 | Outpatient (POV) | payer MEDICARE, OTHER, SELFPAY | PROVIDERS: Visit Provider Dermatology | DX: Z00.00 Encounter for general adult medical examination without abnormal findings (principal) ==

== ENCOUNTER → 2020-10-20 15:53 | Outpatient (CLI) | payer MEDICARE, OTHER, SELFPAY ==
--- NOTE | 2020-10-20 | XR_ITS ---
PROCEDURE: XR LUMBAR SPINE MIN 4V CLINICAL INDICATION: M54.51 COMPARISON: No exams were available for comparison FINDINGS: No fracture or dislocation. No lytic or blastic change. There is normal mineralization. The joint spaces are well-preserved. No significant degenerative/arthritic changes. No erosive multilevel degenerative changes of the visualized lumbar spine with endplate sclerosis, loss of disc height and facet joint arthropathy is noted. Anterior osteophyte formation is noted. Vertebral body heights are maintained. There is minimal retrolisthesis of L2 over L3 is noted. Atherosclerotic vascular calcification is noted. Paravertebral soft tissues are otherwise unremarkable. IMPRESSION: Retrolisthesis of L2 over L3. Degenerative changes of the lumbar spine. Dictated by: Nohemi Lazo 10/20/2020 17:22 Nohemi Lazo in [facility] 10/20/2020 17:22
--- NOTE | 2020-10-20 | XR_ITS ---
PROCEDURE: XR HIP RT 2-3V W/PELVIS CLINICAL INDICATION: M54.51 COMPARISON: No exams were available for comparison FINDINGS: Degenerative changes of the right hip joint with subchondral sclerosis and loss of joint space. Bone density is normal. Minor degenerative changes of the bilateral sacroiliac joints and visualized lumbar spine. No acute fractures or dislocations. No significant soft tissue abnormality. IMPRESSION: No acute fractures or dislocations. Dictated by: Nohemi Lazo 10/20/2020 17:26 Nohemi Lazo in [facility] 10/20/2020 17:26
== END ==
PROVIDERS: PCP Family Medicine; Visit Provider Family Medicine
DX: M54.31 Sciatica, right side (principal)
CPT/HCPCS: 72110; 73502

== ENCOUNTER → 2020-11-11 09:57 | Outpatient (POV) | payer MEDICARE, OTHER, SELFPAY | PROVIDERS: Visit Provider Dermatology | DX: Z00.00 Encounter for general adult medical examination without abnormal findings (principal) ==

== ENCOUNTER → 2020-11-27 09:53 | Outpatient (POV) | payer MEDICARE, OTHER, SELFPAY ==
[2020-11-27 10:10] VITALS: BP 125/67; PULSE 78; RESP 18; O2SAT 96; BMI 31.8
--- NOTE | 2020-11-27 14:42 | HMH.PMCON ---
Assessment and Plan (1) Sacroiliitis Status: Chronic Category: Medical Code(s): M46.1 - Sacroiliitis, not elsewhere classified - Assessment and plan all Dx Assessment and Plan for all problems:: We will schedule a right SI joint injection for the patient. I will follow up with the patient afterwards reassess his symptoms at that time he has been instructed to call the office if he has any issues prior to his next appointment. Dr. Stokes has reviewed this note and agrees with this plan of care. This note was dictated using voice recognition software and may contain errors or omissions HPI - Data of Consult Consult date: 11/27/20 Requesting Physician: Ivelisse Vidal APRN Primary Care Provider: Christoph Hauser MD - Consult Narrative Reason for consult: Low back pain and right lower extremity pain History of present illness: Mr. Michaud is a 80 year old male who presents today for consultation regards to his low back and right lower extremity pain. Patient's pain was gradual in onset. Patient rates his pain a 2 out of 10 today. Patient states that bending and driving increase his pain while resting decreases it. Patient has had respiratory care faculty with no long-term relief. Patient's tried and failed medications. Patient does have a positive Elayne test SI joint compression test and Oma's test and distraction test on the right side. We did discuss SI joint pain along with the symptomology associated. Patient is interested in injective therapy. CC: Ivelisse Vidal APRN [facility] History I have reviewed the patient's past medical history: Yes Medical History: Reports:: Gall Bladder Disease, Gastroesophageal Reflux Disease(GERD), Hypertension Denies:: Cancer, Diabetes Mellitus Type 1, Diabetes Mellitus Type 2, MRSA *Have you ever received a pneumonia vaccine?: Yes *Have you received a flu vaccine this season?: Yes Other Medical History: Reports: Arthritis, Other Laterality Cases: Right: Other Other Surgeries: Yes: Appendectomy, Cholecystectomy, Other (colon resection) Amputation: No Fractures: No - *Social History Smoking Status: Never smoker Alcohol Intake: never *Occupational Status:: retired Housing: house Household Members: spouse *Travel in the last 8 weeks: None Family Hx:: No significant family history Review of Systems - Review of Systems ROS General: no recent weight change, no fever, no sleep disturbances Respiratory: no cough, no shortness of air, no recurring pulmonary infections Cardiovascular/Peripheral Vascular: No chest pain, No palpitations, no edema, no shortness of breath. Gastrointestinal: no new onset incontinence, normal bowel movements reported Genitourinary: no new onset incontinence Musculoskeletal: Right SI joint pain Psychiatric: normal mood/ affect Neurological: [denies new onset weakness in extremities], [denies new onset balance issues] Meds Home Medications Medication Instructions Recorded Confirmed Type Amlodipine Besylate [Amlodipine 5 mg PO DAILY 11/16/18 11/18/20 History 5mg tab] Benazepril HCl 20 mg PO DAILY 11/16/18 11/18/20 History Fluticasone Propionate 2 spry NS DAILY 11/16/18 11/18/20 History Ketoconazole [Ketoconazole 2% 1 each TP BID 11/16/18 11/18/20 History Cream 15gm] Omeprazole [Omeprazole 40mg 40 mg PO DAILY 11/16/18 11/18/20 History Capsule] Fluconazole [Diflucan 200mg tablet] 200 mg PO DAILY #12 tab 11/20/18 11/18/20 Rx Miscellaneous Medical Supply 1 each IH CONT #1 device 11/20/18 11/18/20 Rx [Oxygen, Portable] Rivaroxaban [Xarelto 15mg tablet] 15 mg PO BIDWM tab 11/20/18 11/18/20 Rx Allergies Allergy/AdvReac Type Severity Reaction Status Date / Time No Known Allergies Allergy Unverified 11/18/20 10:41 Objective Vital signs: Pulse Resp BP Pulse Ox 78 18 125/67 96 11/27/20 10:10 11/27/20 10:10 11/27/20 10:10 11/27/20 10:10 Narrative: Physical Exam General: Alert and
== END ==
PROVIDERS: PCP Family Medicine; Visit Provider Clinical Nurse Specialist Family Health
DX: M46.1 Sacroiliitis, not elsewhere classified (principal)
CPT/HCPCS: 99202; G0463

== ENCOUNTER 2020-12-05 13:17 | Day surgery (SDC) | payer MEDICARE, OTHER, SELFPAY ==
[2020-12-05 13:25] VITALS: BP 142/57; PULSE 82; RESP 18; TEMP 36.6; O2SAT 98; BMI 31.8
[2020-12-05 14:03] VITALS: BP 132/85; PULSE 74; RESP 18
[2020-12-05 14:04] VITALS: BP 142/78; PULSE 74; RESP 18; O2SAT 98
--- NOTE | 2020-12-05 14:07 | HMH.PMPROC ---
- Procedure Date: 12/05/20 Time: 14:07 Anesthesiologist:: Alexei Stokes MD Complications:: None Pre-procedure Diagnosis:: Piriformis syndrome/sciatica Post-procedure Diagnosis:: Same Indications for Procedure:: This patient is a pleasant 80-year-old white male who we have been treating for sacroiliitis and piriformis syndrome. His right SI joint is getting better. He does have what seems to be sciatica and piriformis syndrome with trigger points identified over the piriformis muscle. We will do a piriformis muscle injection/sciatic nerve block today to help with his pain symptoms. Procedure Details:: Piriformis muscle injection Informed consent was obtained and the risk and benefits of the procedure was explained to the patient. Patient was taken the procedure room. The right buttock was prepped using ChloraPrep. A 25-gauge needle was used and we injected 10 mL bupivacaine 0.25% and Depo-Medrol 40 mg into the area of the right piriformis muscle. Patient tolerated procedure well with no complications. Plan and Disposition:: We will follow-up with him in 2 weeks. Will reevaluate symptoms at that time.
[2020-12-05 14:14] VITALS: BP 157/83; PULSE 75; RESP 20; O2SAT 98
== END 2020-12-05 14:15 | disposition home or self-care (01) ==
LOC: SC.PAINP 13:19
PROVIDERS: PCP Family Medicine; Visit Provider Anesthesiology
DX: M54.31 Sciatica, right side (principal); I10 Essential (primary) hypertension; K21.9 Gastro-esophageal reflux disease without esophagitis; M19.90 Unspecified osteoarthritis, unspecified site; Z90.49 Acquired absence of other specified parts of digestive tract; Z85.038 Personal history of other malignant neoplasm of large intestine; I26.99 Other pulmonary embolism without acute cor pulmonale
CPT/HCPCS: 20552; J1030

== ENCOUNTER → 2021-01-08 09:39 | Outpatient (POV) | payer MEDICARE, OTHER, SELFPAY ==
[2021-01-08 10:10] VITALS: BP 139/71; PULSE 94; RESP 20; O2SAT 94; BMI 30.9
--- NOTE | 2021-01-08 12:51 | HMH.PAINSOAP ---
[facility] Pain Management SOAP Note Subjective:: Patient is a pleasant 80-year-old white male who presents today for follow-up after an SI injection and piriformis injection. Patient rates his pain a 2 of 10 today. Patient does say, however, he does have intermittent pain into his right buttock and right leg. He says on those days when the pain does return his pain is a 7 or an 8 out of 10. He says that he has to sleep on his left side to get relief. The pain is in his right low back area radiating into his right leg. His previous injection gave him approximately 60 to 70% relief until the last 2 weeks. His last injection was on 12/05/2020. He denies any paresthesia. He denies any changes in bowel or bladder habit. He does report he saw a chiropractor which made his pain worse. He does continue with home stretching and has taken anti-inflammatories. Review of Systems General: No recent weight changes, no fever, no sleep disturbances Respiratory: No cough, no shortness of air, no recurring pulmonary infections Cardiovascular/peripheral vascular: No chest pain, no palpitations, no edema, no shortness of breath Gastrointestinal: No new onset incontinence, normal bowel movements reported Genitourinary: No new onset incontinence Musculoskeletal: Right low back pain, right buttock pain, shooting pain to right lower extremity Psychiatric: Normal mood/affect Neurological: Intermittent weakness right leg, [denies balance issues] Objective:: Physical exam General: Alert and oriented x3, no acute distress, pleasant and cooperative, [on room air] Lungs: Respirations even and unlabored, symmetrical chest expansion Eyes: PERRL Musculoskeletal: Flexion and extension of lumbar spine somewhat guarded secondary to pain, deep tendon reflexes normal, strength in upper and lower extremities [5/5], [abnormal gait noted], positive Oma's test, positive compression test, positive distraction test Neurological: Speech clear, slipcover cutter equal, no gross sensory deficit Assessment:: Sacroiliitis my right, piriformis syndrome Plan:: We will schedule the patient for repeat right piriformis injection right SI injection. Patient does report to have gotten between 60 to 70% relief with the injections until recently. We will see him back after the injections to reevaluate his symptoms. He will continue with home stretching and anti-inflammatories. Risks and benefits of the procedure have been explained to the patient. Patient would like to proceed with the procedure. Possible side effects of corticosteroids have been discussed with the patient. Patient has been instructed to contact the clinic with any concerns before the next appointment. Dr. Stokes has reviewed this note and agrees with this plan of care. This note was dictated using voice recognition software and make contain errors or omissions. [facility] History I have reviewed the patient's past medical history: Yes Medical History: Reports:: Cancer, Gall Bladder Disease, Gastroesophageal Reflux Disease(GERD), Hypertension Denies:: Diabetes Mellitus Type 1, Diabetes Mellitus Type 2, MRSA, Seizures *Have you ever received a pneumonia vaccine?: Yes *Have you received a flu vaccine this season?: Yes Other Medical History: Reports: Arthritis, Other. Denies: Blood Transfusion Reaction Laterality Cases: Right: Other Other Surgeries: Yes: Appendectomy, Cancer Surgery, Cholecystectomy, Colon Resection, Other (colon resection) Amputation: No Fractures: No - *Social History Smoking Status: Never smoker Alcohol Intake: never *Occupational Status:: retired Housing: house Household Members: spouse *Travel in the last 8 weeks: None Family Hx:: No significant family history
== END ==
PROVIDERS: PCP Family Medicine; Visit Provider Clinical Nurse Specialist Family Health
DX: M46.1 Sacroiliitis, not elsewhere classified (principal); G57.00 Lesion of sciatic nerve, unspecified lower limb
CPT/HCPCS: 99212; G0463

== ENCOUNTER 2021-01-16 12:38 | Day surgery (SDC) | payer MEDICARE, SELFPAY ==
[2021-01-16 12:57] VITALS: BP 121/58; PULSE 84; RESP 18; TEMP 36.6; O2SAT 97; BMI 30.9
[2021-01-16 13:00] VITALS: BP 121/58; PULSE 84; RESP 18; O2SAT 96; BMI 31.1
--- NOTE | 2021-01-16 13:58 | PC.NURSE ---
Injection not performed. MD spoke with pt at length about injection purpose, process and potential side effects. pt verbalized understanding and decided with not have injection at this time.
--- NOTE | 2021-01-16 16:38 | P.CONS_ITS ---
[facility] Pain Management SOAP Note Subjective:: This patient is a very pleasant 80-year-old white male who presents with right- sided hip and buttock pain related to the above diagnosis. Recently underwent underwent right piriformis muscle injection and right SI joint injection noted 60 to 70% pain relief for approximately 1 month. He is scheduled today for repeat right piriformis muscle injection and right SI joint injection; however, he states that his pain is fairly well tolerable at this time. He rates his pain as a 1 out of 10. After discussing in great detail adding his potential treatment options, he to hold off on this injection today. Otherwise, he has no other concerns or questions at this time. Objective:: General: Alert and oriented x3, no acute distress, pleasant and cooperative Lungs: Resps E/U, symmetric chest expansion Eyes: PERRL Musculoskeletal: limited flexion and extension of the lumbar spine secondary to pain. Deep tendon reflexes were normal in bilateral lower extremities. Motor exam was grossly intact in the bilateral lower extremities, antalgic gait noted, positive Oma's exam the right, positive SI joint compression on the right, and positive Gaenslen's on the right. Tenderness to palpation over the piriformis muscle on the right. No tenderness to palpation over the ischial tuberosity. 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 He was scheduled to undergo right-sided SI joint injection and right-sided piriformis muscle injection under fluoroscopy; however, he reports that his pain is fairly well tolerable at this time and he would like to defer these injections until the pain worsens. I discussed with him in great detail and his treatment options. We will follow-up with him in 1 month for reassessment and will reevaluate pain symptoms at that time and schedule repeat injections if needed. I also discussed with him that he is to contact clinic sooner for any issues or if the pain returns and he needs to be seen sooner in clinic. [facility] History Medical History: Reports:: Cancer, Gall Bladder Disease, Gastroesophageal Reflux Disease(GERD), Hypertension Denies:: Diabetes Mellitus Type 1, Diabetes Mellitus Type 2, MRSA, Seizures *Have you ever received a pneumonia vaccine?: No *Have you received a flu vaccine this season?: No Other Medical History: Reports: Arthritis, Other. Denies: Blood Transfusion Reaction Laterality Cases: Right: Other Other Surgeries: Yes: Appendectomy, Cancer Surgery, Cholecystectomy, Colon Resection, Other (colon resection) Amputation: No Fractures: No - *Social History Smoking Status: Never smoker Alcohol Intake: never *Occupational Status:: retired Housing: house Household Members: spouse *Travel in the last 8 weeks: None Family Hx:: No significant family history
== END 2021-01-16 13:59 | disposition home or self-care (01) ==
LOC: SC.PAINP 12:41
PROVIDERS: PCP Family Medicine; Visit Provider Anesthesiology Pain Medicine
DX: M46.1 Sacroiliitis, not elsewhere classified (principal); G57.01 Lesion of sciatic nerve, right lower limb
CPT/HCPCS: 99212; G0463

== ENCOUNTER → 2021-02-27 10:24 | Outpatient (POV) | payer MEDICARE, SELFPAY ==
[2021-02-27 10:27] VITALS: BP 139/65; PULSE 84; RESP 18; TEMP 37.1; O2SAT 98; BMI 30.5
--- NOTE | 2021-02-27 11:09 | P.CONS_ITS ---
[facility] Pain Management SOAP Note Subjective:: Patient is a very pleasant 81-year-old white male who presents today for follow- up on his chronic right-sided hip and buttock pain related to right-sided sacroiliitis and right piriformis syndrome. He has previously undergone injections to the right piriformis muscle as well as right-sided SI joint i njections and states about 60 to 70% pain relief with both for approximately 1 month. He describes the pain as a chronic aching pain in the right side of his hip and radiates into his right buttock and occasionally down the posterior aspect of his right lower extremity. He states that currently his pain is at a tolerable level and would prefer to hold off on repeat injections at this time. He is interested in physical therapy for a few sessions to list a home exercise program to help with his pain as well as stability and overall functionality. Objective:: General: Alert and oriented x3, no acute distress, pleasant and cooperative Lungs: Resps E/U, symmetric chest expansion Eyes: PERRL Musculoskeletal: limited flexion and extension of the lumbar spine secondary to pain. Deep tendon reflexes were normal in bilateral lower extremities. Motor exam was grossly intact in the bilateral lower extremities, antalgic gait noted. Positive Oma's, positive SI joint compression, positive Gaenslen's on the right. Tenderness to palpation over the right SI joint and tenderness to palpation over the right piriformis muscle. Neurological: Speech is clear, transmission maintenance supervisor equal, no gross sensory deficits Assessment:: This patient is a very pleasant 81-year-old white male with right-sided sacroiliitis and right-sided piriformis syndrome. We discussed today that given that his pain is overall at a tolerable level we will continue to hold off on repeat injections. I will refer him to physical therapy to establish a home exercise program as well as a focus on stretching strengthening of right hip muscles, deep heat, treatment modalities for pain control and other treatment modalities as per PT. I will follow-up with him in 1 month for reassessment and we will reevaluate his pain symptoms at that time. [facility] History Medical History: Reports:: Cancer, Gall Bladder Disease, Gastroesophageal Reflux Disease(GERD), Hypertension Denies:: Diabetes Mellitus Type 1, Diabetes Mellitus Type 2, MRSA, Seizures *Have you ever received a pneumonia vaccine?: No *Have you received a flu vaccine this season?: No Other Medical History: Reports: Arthritis, Other. Denies: Blood Transfusion Reaction Laterality Cases: Right: Other Other Surgeries: Yes: Appendectomy, Cancer Surgery, Cholecystectomy, Colon Resection, Other (colon resection) Amputation: No Fractures: No - *Social History Smoking Status: Never smoker Alcohol Intake: never *Occupational Status:: retired Housing: house Household Members: spouse *Travel in the last 8 weeks: None Family Hx:: No significant family history
== END ==
PROVIDERS: PCP Family Medicine; Visit Provider Anesthesiology Pain Medicine
DX: M46.1 Sacroiliitis, not elsewhere classified (principal); G57.01 Lesion of sciatic nerve, right lower limb
CPT/HCPCS: 99212; G0463

== ENCOUNTER → 2021-03-02 10:17 | Outpatient (CLI) | payer MEDICARE, SELFPAY | PROVIDERS: PCP Family Medicine; Visit Provider Family Medicine | DX: Z20.822 Contact with and (suspected) exposure to COVID-19 (principal) | CPT/HCPCS: U0003 ==

== ENCOUNTER → 2021-04-03 08:54 | Outpatient (POV) | payer MEDICARE, OTHER, SELFPAY ==
[2021-04-03 09:15] VITALS: BP 148/72; PULSE 83; RESP 20; TEMP 36.8; O2SAT 97; BMI 30.9
--- NOTE | 2021-04-03 09:50 | P.CONS_ITS ---
[facility] Pain Management SOAP Note Subjective:: This patient is a pleasant 81-year-old white male who we have been treating for right-sided hip and buttock pain related to piriformis syndrome and sacroiliitis. He has undergone injections in the past and currently has been enrolled in physical therapy. He is done 6 visits with physical therapy. This is helped tremendously with his pain and mobility. His pain is down to 1 out of 10. He will continue with physical therapy and complete 10 visits. We will reassess his symptoms at that time. Other than this he is doing very well with increased functionality and decrease pain. Objective:: Alert and oriented x3 no acute distress. Patient does have an antalgic gait. Motor strength of the lower extremities is 5/5. There is no gross sensory deficit. There is minimal tenderness over the right piriformis muscle and right SI joint. Assessment:: Sacroiliitis and piriformis syndrome Plan:: We will follow-up with him in 1 month. Will reevaluate his symptoms at that time. He is to continue physical therapy and complete 10 visits. We will reassess his symptoms at that time. [facility] History Medical History: Reports:: Cancer, Gall Bladder Disease, Gastroesophageal Reflux Disease(GERD), Hypertension Denies:: Diabetes Mellitus Type 1, Diabetes Mellitus Type 2, MRSA, Seizures *Have you ever received a pneumonia vaccine?: Yes *Have you received a flu vaccine this season?: Yes Other Medical History: Reports: Arthritis, Other. Denies: Blood Transfusion Reaction Laterality Cases: Right: Other Other Surgeries: Yes: Appendectomy, Cancer Surgery, Cholecystectomy, Colon Resection, Other (colon resection) Amputation: No Fractures: No - *Social History Smoking Status: Never smoker Alcohol Intake: never *Occupational Status:: other Housing: house Household Members: spouse *Travel in the last 8 weeks: None Family Hx:: No significant family history
== END ==
PROVIDERS: PCP Family Medicine; Visit Provider Anesthesiology
DX: M46.1 Sacroiliitis, not elsewhere classified (principal); G57.00 Lesion of sciatic nerve, unspecified lower limb
CPT/HCPCS: 99212; G0463

== ENCOUNTER 2021-04-07 08:00 | Outpatient (RCR) | payer MEDICARE, OTHER, SELFPAY | END 2021-04-07 08:05 | disposition home or self-care (01) | LOC: PT 08:00 | PROVIDERS: PCP Family Medicine; Visit Provider Anesthesiology Pain Medicine | DX: M46.1 Sacroiliitis, not elsewhere classified (principal); G57.01 Lesion of sciatic nerve, right lower limb | CPT/HCPCS: 97010; 97014; 97110; 97140; 97163; G0283 ==

== ENCOUNTER → 2021-05-15 08:55 | Outpatient (POV) | payer MEDICARE, OTHER, SELFPAY ==
--- NOTE | 2021-05-15 09:56 | P.CONS_ITS ---
[facility] Pain Management SOAP Note Subjective:: Patient is a pleasant 81-year-old white male who we are treating for right-sided hip pain and buttock pain related to piriformis syndrome and sacroiliitis. He did okay from his injections he has done very well with physical therapy and home exercises. Pain is down to minimal. His mobility is much better. He has been discharged from physical therapy at this time. I have told him to continue his home exercise routine and we will follow-up with him in 1 month. Objective:: Alert and oriented x3 no acute distress. Patient does have antalgic gait. Motor strength of lower extremities is 5/5. There is no gross sensory deficit. He does have some stiffness mainly getting up from a seated position. Assessment:: Sacroiliitis and piriformis syndrome Plan:: We will follow-up with him in 1 month. Will reevaluate his symptoms at that time. [facility] History Medical History: Reports:: Cancer, Gall Bladder Disease, Gastroesophageal Reflux Disease(GERD), Hypertension Denies:: Diabetes Mellitus Type 1, Diabetes Mellitus Type 2, MRSA, Seizures *Have you ever received a pneumonia vaccine?: Yes *Have you received a flu vaccine this season?: Yes Other Medical History: Reports: Arthritis, Other. Denies: Blood Transfusion Reaction Laterality Cases: Right: Other Other Surgeries: Yes: Appendectomy, Cancer Surgery, Cholecystectomy, Colon Resection, Other (colon resection) Amputation: No Fractures: No - *Social History Smoking Status: Never smoker Alcohol Intake: never *Occupational Status:: other Housing: house Household Members: spouse *Travel in the last 8 weeks: Inside the [facility] Family Hx:: No significant family history
== END ==
PROVIDERS: PCP Family Medicine; Visit Provider Anesthesiology
DX: M46.1 Sacroiliitis, not elsewhere classified (principal); G57.00 Lesion of sciatic nerve, unspecified lower limb
CPT/HCPCS: 99212; G0463

== ENCOUNTER → 2021-06-15 09:52 | Outpatient (POV) | payer MEDICARE, OTHER, SELFPAY ==
[2021-06-15 10:07] VITALS: BP 153/83; PULSE 101; RESP 18; O2SAT 96; BMI 30.9
--- NOTE | 2021-06-15 10:39 | P.CONS_ITS ---
[facility] Pain Management SOAP Note Subjective:: Patient is 81-year-old white male who presents today for follow-up. He rates his pain a 2 out of 10. He says he is doing very well at this time he does continue with home stretching. He says that the only time he is now having pain is when doing moderate activity. He says that he was recently outdoors using a chain saw and felt achiness in his low back afterwards. He says this is the only time he has had significant pain. He says after sitting his pain subsided. Overall he is not having any problems at this time. Review of Systems General: No recent weight changes, no fever, no sleep disturbances Respiratory: No cough, no shortness of air, no recurring pulmonary infections Cardiovascular/peripheral vascular: No chest pain, no palpitations, no edema, no shortness of breath Gastrointestinal: No new onset incontinence, normal bowel movements reported Genitourinary: No new onset incontinence Musculoskeletal: Intermittent achiness to the low back?with moderate activity Psychiatric: [Normal mood/affect] Neurological: [Denies weakness in extremities], [denies balance issues] Objective:: Physical exam General: Alert and oriented x3, no acute distress, pleasant and cooperative Lungs: Respirations even and unlabored, symmetrical chest expansion Eyes: PERRL Musculoskeletal: Flexion and extension of lumbar [spine] somewhat guarded secondary to pain, normal gait noted Neurological: Speech clear, no gross sensory deficit Assessment:: Sacroiliitis, piriformis syndrome Plan:: Patient is doing well at this time. We will plan to follow-up with him in 6 months for further evaluation of symptoms. He has been instructed to contact clinic if he has any concerns for his next appointment. Patient has been instructed to contact the clinic with any concerns before the next appointment. Dr. Stokes has reviewed this note and agrees with this plan of care. This note was dictated using voice recognition software and make contain errors or omissions. [facility] History I have reviewed the patient's past medical history: Yes Medical History: Reports:: Cancer, Gall Bladder Disease, Gastroesophageal Reflux Disease(GERD), Hypertension Denies:: Diabetes Mellitus Type 1, Diabetes Mellitus Type 2, MRSA, Seizures *Have you ever received a pneumonia vaccine?: Yes *Have you received a flu vaccine this season?: Yes Other Medical History: Reports: Arthritis, Other. Denies: Blood Transfusion Reaction Laterality Cases: Right: Other Other Surgeries: Yes: Appendectomy, Cancer Surgery, Cholecystectomy, Colon Resection, Other (colon resection) Amputation: No Fractures: No - *Social History Smoking Status: Never smoker Alcohol Intake: never *Occupational Status:: unemployed Housing: house Household Members: spouse *Travel in the last 8 weeks: None Family Hx:: No significant family history
== END ==
PROVIDERS: Visit Provider Clinical Nurse Specialist Family Health
DX: M46.1 Sacroiliitis, not elsewhere classified (principal); G57.00 Lesion of sciatic nerve, unspecified lower limb
CPT/HCPCS: 99212; G0463

== ENCOUNTER → 2021-07-20 11:01 | Outpatient (CLI) | payer MEDICARE, OTHER, SELFPAY ==
[2021-07-20 11:42] LABS: Basophils # 0.1 K/mm3 (0-0.2); Basophils % 1.2 % (0.1-2.0); Eosinophils # 0.5 K/mm3 (0.0-0.4); Eosinophils % 4.7 % (0.1-12.0); Hematocrit 47.5 % (42.0-52.0); Hemoglobin 15.4 g/dL (14.1-18.0); Lymphocytes # 1.3 K/mm3 (0.7-4.5); Lymphocytes % 12.2 % (10-50); Mean Corpuscular HGB Conc 32.5 g/dL (31.8-35.4); Mean Corpuscular Hemoglobin 30.5 pg (27.0-31.2); Mean Corpuscular Volume 93.9 fl (80-94); Mean Platelet Volume 8.1 fl (7.4-10.4); Monocytes # 0.7 K/mm3 (0.1-1.0); Monocytes % 6.4 % (1.7-9.3); Neutrophils # 7.9 K/mm3 (1.8-7.8); Neutrophils % 75.5 % (37.0-80.0); Platelet Count 177 K/mm3 (142-424); Red Blood Count 5.05 M/mm3 (4.60-6.20); White Blood Count 10.4 K/mm3 (4.8-10.8)
== END ==
PROVIDERS: PCP Family Medicine; Visit Provider Nurse Practitioner
DX: Z20.822 Contact with and (suspected) exposure to COVID-19 (principal)
CPT/HCPCS: 36415; 85025; 87275; 87276; C9803; U0003; U0005

== ENCOUNTER → 2021-12-14 10:06 | Outpatient (POV) | payer MEDICARE, OTHER, SELFPAY ==
[2021-12-14 10:13] VITALS: BP 148/74; PULSE 79; RESP 18; TEMP 36.4; O2SAT 96; BMI 30.7
--- NOTE | 2021-12-14 12:58 | P.CONS_ITS ---
[facility] Pain Management SOAP Note Subjective:: Patient is a pleasant 81-year-old male who presents today for 6-month follow-up. We are currently treating this patient for right-sided sacroiliitis and piriformis syndrome. Patient also has a history of rheumatoid arthritis. He is currently on hydroxychloroquine. We have done injections with the patient significantly provided relief. Today, patient presents with continuous relief. He rates his pain a 0 out of 10. He takes ftih-mye-juoulmb medications as needed. He has no other complaints today. He is not in any scheduled medications. Review of Systems: General: No recent weight changes, no fever, no sleep disturbances Respiratory: No cough, no shortness of air, no recurring pulmonary infections Cardiovascular/peripheral vascular: No chest pain, no palpitations, no edema, no shortness of breath Gastrointestinal: No new onset incontinence, normal bowel movements reported Genitourinary: No new onset incontinence Musculoskeletal: Improving right hip pain Psychiatric: [Normal mood/affect] Neurological: [Denies weakness in extremities], [denies balance issues] Objective:: Physical Exam: General: Alert and oriented x3, no acute distress, pleasant and cooperative Lungs: Respirations even and unlabored, symmetrical chest expansion Eyes: PERRL Musculoskeletal: Increased range of motion of the right hip. Neurological: Speech clear, no gross sensory deficit Assessment:: Sacroiliitis, piriformis syndrome, rheumatoid arthritis Plan:: Patient continues to have significant relief after the injection. Patient has no other complaints today. Rates his pain a 0 out of 10. We will follow-up with this patient in 1 year. Patient has been instructed to contact the clinic with any concerns before the next appointment. Dr. Stokes has reviewed this note and agrees with this plan of care. This note was dictated using voice recognition software and make contain errors or omissions. [facility] History Medical History: Reports:: Cancer, Gall Bladder Disease, Gastroesophageal Reflux Disease(GERD), Hypertension Denies:: Diabetes Mellitus Type 1, Diabetes Mellitus Type 2, MRSA, Seizures *Have you ever received a pneumonia vaccine?: Yes *Have you received a flu vaccine this season?: Yes Other Medical History: Reports: Arthritis, Other. Denies: Blood Transfusion Reaction Laterality Cases: Right: Other Other Surgeries: Yes: Appendectomy, Cancer Surgery, Cholecystectomy, Colon Resection, Other (colon resection) Amputation: No Fractures: No - *Social History Smoking Status: Never smoker Alcohol Intake: never *Occupational Status:: retired Housing: house Household Members: spouse *Travel in the last 8 weeks: None Family Hx:: No significant family history
== END ==
PROVIDERS: Visit Provider Student in an Organized Health Care Education/Training Program
DX: M46.1 Sacroiliitis, not elsewhere classified (principal); G57.00 Lesion of sciatic nerve, unspecified lower limb; M06.9 Rheumatoid arthritis, unspecified
CPT/HCPCS: 99212; G0463

== ENCOUNTER → 2022-01-04 12:48 | Outpatient (CLI) | payer MEDICARE, OTHER, SELFPAY ==
--- NOTE | 2022-01-04 | XR_ITS ---
FINAL REPORT CLINICAL HISTORY: CHEST PAIN, left sided COMPARISON: September 27, 2018 FINDINGS: Two views of the chest were obtained. The heart size and pulmonary vascularity are within normal limits. The mediastinum is normal. There is mild bibasilar atelectasis or scarring. There is no pneumothorax. There is moderate degenerative change of the thoracic spine. IMPRESSION: Mild bibasilar atelectasis or scarring. Reviewed, Interpreted and Dictated by Sherman Jeffries III, MD Transcribed by Pascual Salinas Authenticated and [facility]
--- NOTE | 2022-01-04 13:06 | ECG_ITS ---
APPROVED REPORT Exam: Resting ECG HR:84 bpm ECG Measurements Heart Rate 84 AXES CO 191 P 64 QRSd 104 QRS 37 QT 361 T 30 QTc 402 Conclusion SINUS RHYTHM NORMAL ECG UNCONFIRMED REPORT Electronically signed by : Adelso Zheng MD 01/05/2022 22:18:12
[2022-01-04 14:33] LABS: Creatine Kinase 124 U/L (55-170)
[2022-01-04 14:45] LABS: CKMB Relative Index 2.4 U/L (0-4.0)
[2022-01-04 14:58] LABS: Troponin I < 0.01 ng/ml (0.00-0.034)
== END ==
PROVIDERS: PCP Family Medicine; Visit Provider Family Medicine
DX: R07.9 Chest pain, unspecified (principal)
CPT/HCPCS: 36415; 71046; 82550; 82553; 84484; 93005

== ENCOUNTER → 2022-01-08 09:07 | Outpatient (CLI) | payer MEDICARE, SELFPAY ==
--- NOTE | 2022-01-08 | CA_ITS ---
APPROVED REPORT Exam: Exercise Treadmill Technologist: Vaishnavi Billy, Ht: 6 ft 0 in Wt: 235 lbs BSA: 2.28 m2 HR: 76 bpm BP: 150/81 mmHg Rhythm: NSR Medical History Medical History: HTN Medications: BP MED,,,,, Allergies: No known drug allergies Cardiac Risk Factors: HTN Stress Test Details Test: Shin HR Resting HR: 76 bpm Max Heart Rate (APMHR): 139.197753 bpm Max HR Achieved: 130 bpm Target HR (85% APMHR): 118.777244 bpm % of APMHR: 93.53 Recovery HR: 89 bpm BP Resting BP: 160/84 mmHg Max BP: 193/83 mmHg Recovery BP: 173.0/88.0 mmHg ECG Resting ECG: NSR Clinical Reason for Termination: Fatigue Exercise duration: 04:14 min Highest Stage Achieved: Exercise capacity: 7.0 METs Stress ECG Conclusion PT WALKED 4:14 MINUTES 7.0 METS MAX HR:130 % OF PM: 110 TEST STOPPED DUE TO: FATIGUE PT HAD NO CP. OCC PVCS <1.[address] SEGMENT CHANGES NEGATIVE Test Summary REST . . . . . . . Standing REST . . . . . . . Sitting REST 07:11 0.0 1.2 76 . 160/ 84 . . Stage 1 01:00 10.0 1.7 97 . . . . Stage 1 02:00 10.0 1.7 109 . . . . Stage 1 03:00 10.0 1.7 114 . . . . Stage 2 01:00 12.0 2.5 126 . . . . Stage 2 01:14 12.0 2.5 128 . . . Stop exercise at 04:14 RECOVERY 01:00 0.0 0.0 118 . . . . RECOVERY 02:00 0.0 0.0 97 . 193/ 83 . . RECOVERY 03:00 0.0 0.0 90 . 193/ 83 . . RECOVERY 04:00 0.0 0.0 86 . 173/ 88 . . RECOVERY 04:36 0.0 0.0 87 . 173/ 88 . . Electronically signed by : Adelso Zheng MD 01/08/2022 15:34:16
== END ==
PROVIDERS: PCP Family Medicine; Visit Provider Family Medicine
DX: R07.9 Chest pain, unspecified (principal)
CPT/HCPCS: 93017

== ENCOUNTER 2022-04-26 21:49 | Observation (INO) | payer MEDICARE, SELFPAY ==
[2022-04-26 21:53] VITALS: BP 135/62; PULSE 113; RESP 22; TEMP 38.6; O2SAT 94; BMI 30.3
[2022-04-26 22:08] VITALS: BMI 30.3
--- NOTE | 2022-04-26 22:10 | XR_ITS ---
PROCEDURE INFORMATION: Exam: XR Chest Exam date and time: 04/26/2022 10:25 PM Age: 82 years old Clinical indication: Cough TECHNIQUE: Imaging protocol: Radiologic exam of the chest. Views: 1 view. COMPARISON: CR XR CHEST 2V 01/04/2022 12:57 PM FINDINGS: Lungs: In the lung bases there is atelectasis versus pneumonia. Low lung volumes. Pleural spaces: Unremarkable. No pleural effusion. No pneumothorax. Heart/Mediastinum: Unremarkable. No cardiomegaly. Bones/joints: Unremarkable. IMPRESSION: Atelectasis versus pneumonia in the lung bases.
--- NOTE | 2022-04-26 22:15 | ECG_ITS ---
APPROVED REPORT Exam: Resting ECG HR:107 bpm ECG Measurements Heart Rate 107 AXES NE 196 P 48 QRSd 101 QRS 16 QT 312 T 55 QTc 375 Conclusion SINUS TACHYCARDIA ABNORMAL RHYTHM ECG UNCONFIRMED REPORT Electronically signed by : Adelso Zheng MD 04/27/2022 19:59:01
--- NOTE | 2022-04-26 22:18 | PC.NURSE ---
RAD at for CXR
[2022-04-26 22:20] LABS: Basophils # 0.2 K/mm3 (0-0.2); Basophils % 2.4 % (0.1-2.0); Eosinophils # 0.1 K/mm3 (0.0-0.4); Eosinophils % 0.8 % (0.1-12.0); Hematocrit 50.2 % (42.0-52.0); Hemoglobin 16.8 g/dL (14.1-18.0); Influenza A, PCR Not Detected (NotDetected); Influenza B, PCR Not Detected (NotDetected); Lymphocytes # 0.4 K/mm3 (0.7-4.5); Lymphocytes % 4.6 % (10-50); Mean Corpuscular HGB Conc 33.4 g/dL (31.8-35.4); Mean Corpuscular Hemoglobin 31.2 pg (27.0-31.2); Mean Corpuscular Volume 93.4 fl (80-94); Mean Platelet Volume 8.1 fl (7.4-10.4); Monocytes # 0.8 K/mm3 (0.1-1.0); Monocytes % 11.1 % (1.7-9.3); Neutrophils # 6.2 K/mm3 (1.8-7.8); Neutrophils % 81.1 % (37.0-80.0); Platelet Count 162 K/mm3 (142-424); Red Blood Count 5.38 M/mm3 (4.60-6.20); Red Cell Distribution Width 13.1 % (11.5-17.5); White Blood Count 7.6 K/mm3 (4.8-10.8)
[2022-04-26 22:30] VITALS: BP 128/68; PULSE 107; RESP 29; O2SAT 92
[2022-04-26 22:31] LABS: Alanine Aminotransferase 24 U/L (12-78); Albumin Level 4.1 g/dl (3.5-5.0); Albumin/Globulin Ratio 1.6 (1.1-1.8); Alkaline Phosphatase 87 U/L (38-126); Amylase 72 U/L (30-110); Anion Gap 14.3 mEq/L (5-15); Aspartate Amino Transferase 37 U/L (17-59); Bilirubin,Total 0.9 mg/dl (0.2-1.3); Blood Urea Nitrogen 14 mg/dl (9-20); Calcium 8.7 mg/dl (8.4-10.2); Carbon Dioxide 25 mmol/L (22.0-30.0); Chloride 96 mmol/L (98-107); Creatinine Clearance Estimated 60 mL/min (50-200); Estimated Glomerular Filt Rate 49 ml/min (>60); GFR (African American) 59 ML/MIN (>60); Globulin 2.6 g/dL (1.3-3.2); Glucose 103 mg/dl (74-100); Lipase 147 U/L (23-300); Potassium 4.3 mmoL/L (3.5-5.1); Sodium 131 mmol/L (136-145); Total Protein,Serum 6.7 g/dl (6.3-8.2)
[2022-04-26 22:32] LABS: Lactic Acid 1.4 mmol/L (0.7-2.1)
[2022-04-26 22:39] LABS: C-Reactive Protein 23.5 mg/L (0-4)
[2022-04-26 22:41] LABS: Coronavirus 19, PCR Detected (NotDetected)
[2022-04-26 22:48] LABS: Erythrocyte Sedimentation Rate 1 mm/hr (0-20)
[2022-04-26 22:50] LABS: Procalcitonin 0.135 ng/mL (0.0-2.0); Troponin I < 0.01 ng/ml (0.00-0.034)
[2022-04-26 23:00] VITALS: BP 120/64; PULSE 100; O2SAT 91
[2022-04-26 23:30] VITALS: BP 125/63; PULSE 95; O2SAT 94
--- NOTE | 2022-04-26 23:37 | PC.NURSE ---
Pt unable to provide urine sample at this time. Warm blanket provided. No other needs or complaints voiced.
[2022-04-27] VITALS (10 sets, daily range): BP systolic 100–135; BP diastolic 46–77; PULSE 68–93; RESP 15–22; TEMP 36.4–36.6; O2SAT 90–99; BMI 30.3
--- NOTE | 2022-04-27 00:01 | HMH.EDFEV ---
Discharge Plan Disposition Patient Disposition: Admitted as Observation Chief Complaint: Fever Clinical Impressions Clinical Impression: COVID-19, Acute delirium Discharge ED Provider: Valdemar Holley Fever HPI General Chief Complaint: Fever Stated Complaint: weakness,fever, covid + home test Time Seen by Provider: 04/26/22 22:30 Mode of Arrival: Family Vehicle Source of Information: Patient, Relative and Medical Record Limitations: No Limitations Description of Symptoms (Recalled from ER Triage Doc. by RN): Pt c/o weakness, malaise, nausea, chest congestion, fever, and body aches. Son states his father has not been been able to get out of bed today d/t extreme fatigue and aches. States he was positive for covid with a home test and temp was 100.5. 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 Denies chest pain. Pt has voided on himself SUPERVISORY EXAMINER, reports he had trouble making it to the bathroom . Pt is A&O x3. History of Present Illness HPI Narrative: pt with acute onset of fever and body aches with positive covid-19 at home with weakness and dec ambulation - MD complaint: fever and weakness Onset (ago): day(s) Associated symptoms: chills Relieving factors: acetaminophen Related Data Home Medications Medication Instructions Recorded Confirmed amlodipine 5 mg tablet 5 mg PO DAILY Hypertension 11/16/18 12/14/21 benazepril 20 mg tablet 20 mg PO DAILY Hypertension 11/16/18 12/14/21 fluticasone propionate 50 2 spry NS DAILY allergies 11/16/18 12/14/21 mcg/actuation nasal spray,suspension ketoconazole 2 % topical cream 1 each TP BID Skin condition 11/16/18 12/14/21 hydroxychloroquine 200 mg tablet 200 mg PO DAILY . 02/27/21 12/14/21 Allergies Allergy/AdvReac Type Severity Reaction Status Date / Time No Known Allergies Allergy Verified 04/03/21 09:16 [facility] Surgical History (Updated 04/27/22 @ 02:43 by Kurt Kan DNP) History of colon resection S/P appendectomy Status post cholecystectomy Family History (Updated 04/27/22 @ 02:43 by Kurt Kan DNP) Diabetes Hypertension Social History Smoking Status: Never smoker alcohol intake: never substance use type: denies use current occupational status: retired Travel in the last 8 weeks: None household members: spouse housing: house current occupational exposures/hazards: No caffeine: Yes ROS Obtained: Yes All systems reviewed & no additional complaints except as documented Constitutional Constitutional: Reports fever(s) and Reports weakness Neurologic Neurologic: Reports weakness Physical Exam General General appearance: alert Head Head exam: normocephalic Eye Eye exam: Present PERRL and EOMI; Absent scleral icterus ENT ENT exam: Present mucous membranes dry Neck Neck exam: Present trachea midline Respiratory Respiratory exam: Present normal lung sounds bilaterally; Absent respiratory distress Cardiovascular Cardiovascular exam: Present regular rate, systolic murmur and +S4 Abdominal Exam Abdominal exam: Present soft; Absent tenderness Extremities Exam Extremities exam: Absent tenderness Neurological Exam Neurological exam: Present alert and CN II-XII intact; Absent motor sensory deficit Skin Skin exam: Absent rash Medical Decision Making Medical Records Medical records reviewed: Yes I reviewed the patient's medical records. Nick Inquiry Pt receiving controlled substance: No Vital Signs: 04/26/22 21:53 04/26/22 22:16 04/26/22 22:30 Temperature 101.4 F H Temperature Source Oral Oral Pulse Rate 107 H Pulse Rate [Right] 113 H Respiratory Rate 22 29 H Blood Pressure 128/68 Blood Pressure [Right Arm] 135/62 Blood Pressure Mean [Right Arm] 86 Blood Pressure Source [Right Arm] Automatic Cuff 02 Sat by Pulse Oximetry 94 L 92 L Oxygen Delivery Method Room Air Room Air 04/26/22 23:00 04/26/22 23:30 04/27/22 00:00 Temperature Temperature Source Pulse Rate 100 H 95 H 90 Pulse Rate [Right] Res
--- NOTE | 2022-04-27 00:40 | PC.NURSE ---
speaking with Dr. Norman
--- NOTE | 2022-04-27 00:40 | PC.NURSE ---
DR. SMITH OF PHONE WITH DR. GRIFFITH.
--- NOTE | 2022-04-27 00:43 | PC.NURSE ---
DR. SMITH SPOKE WITH DR. GRIFFITH REGARDING ADMISSION, DR. GRIFFITH REPORTED THAT DR. LLAMAS PATIENT TO BE ADMITTED TO HOSPITALIST. HOSPITALIST NOTIFIED OF ADMISSION.
[2022-04-27 01:07] LABS: Microscopic, Urine URINE MICROSCOPIC (MICROSCOPIC)
[2022-04-27 01:14] LABS: Appearance,Urine CLEAR (Clear); Bilirubin,Urine Negative (Negative); Blood, Urine TRACE-I (Negative); Color,Urine YELLOW (Yellow); Glucose,Urine (UA) Negative (Negative); Ketones,Urine Negative (Negative); Leukocyte Esterase,Urine Negative (Negative); Nitrate,Urine Negative (Negative); Protein,Urine Negative (Negative); Specific Gravity, Urine >= 1.030 (1.005-1.030); Urobilinogen,Urine 0.2 EU/dl (0.2)
[2022-04-27 01:30] LABS: Bacteria,Urine 1+ /lpf; Mucus,Urine 1+ /lpf; WBC,Urine Occasional #/hpf (0-3)
--- NOTE | 2022-04-27 01:49 | PC.NURSE ---
PATIENT ADMITTED TO [address] RANDOLPH WITH DX OF [facility]
--- NOTE | 2022-04-27 02:32 | EXP.HP ---
History of Present Illness *Admission Date: 04/27/22 *Reason for visit:: Fevers, Weakness *History of present illness: Mr. Michaud is a 82 year old male with a past medical history of RA, on immunosuppressive therapy and Hypertension. He presented to the ER today secondary to acute onset of weakness associated with chills, generalized body aches and fevers that started abruptly today. 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 He reports that today with his symptoms that he went and bought a covid home test and it was positive. He brought him into the ER for further evaluation. In the ER Cxray showed atelectasis and low lung volumes. CBC was unremarkable. CRP was elevated at 23.5. Covid 19 testing was positive. The patient was noted to be febrile on admission with a temperature of 101.4. The patient has only been vaccinated x 1. The patient will be admitted with COVID 19. His oxygen on admission is 94 on room air. Due to him being on immunosuppressive therapy secondary to his RA cultures will be obtained. He meets criteria for Remdesiver given concern for possibly deterioration of symptoms. This was discussed with the patient and son at bedside. Both verbalized understanding and agreement with the plan of care. PFSH PFSH Medical History (Updated 04/27/22 @ 03:27 by Kelley Mitchell RN) Allergies Colon cancer History of diverticulitis History of gastroesophageal reflux (GERD) Skin cancer Surgical History (Updated 04/27/22 @ 03:27 by Kelley Mitchell RN) History of colon resection History of colonoscopy S/P appendectomy Status post cholecystectomy Family History (Updated 04/27/22 @ 03:27 by Kelley Mitchell RN) Family history of GERD Diabetes Hypertension Social History (Updated 04/27/22 @ 03:27 by Kelley Mitchell RN) Smoking Status: Never smoker alcohol intake: never substance use type: denies use current occupational status: employed Travel in the last 8 weeks: None household members: spouse housing: house current occupational exposures/hazards: No caffeine: Yes Review of Systems Constitutional Constitutional: Reports chills, Reports fatigue and Reports fever(s) ENT Ears, Nose, Mouth, and Throat: Reports dizziness and Reports dry mouth *Cardiovascular Cardiovascular: Reports system reviewed and no additional complaints, except as documented *Respiratory Respiratory: Reports system reviewed and no additional complaints, except as documented *Gastrointestinal Gastrointestinal: Reports system reviewed and no additional complaints, except as documented *Genitourinary Genitourinary: Reports system reviewed and no additional complaints, except as documented *Musculoskeletal Musculoskeletal: Reports muscle weakness and Reports myalgias Integumentary/Breasts Skin/Breast: Reports system reviewed and no additional complaints, except as documented *Neurologic Neurologic: Reports dizziness Endocrine Endocrine: Reports fatigue Hematologic/Lymphatic Hematologic/Lymphatic: Reports system reviewed and no additional complaints, except as documented Meds Home Medications and Allergies Home Medications Medication Instructions Recorded Confirmed Type amlodipine 5 mg tablet 5 mg PO DAILY Hypertension 11/16/18 04/27/22 History benazepril 20 mg tablet 20 mg PO DAILY Hypertension 11/16/18 04/27/22 History fluticasone propionate 50 2 spry NS DAILY allergies 11/16/18 04/27/22 History mcg/actuation nasal spray,suspension hydroxychloroquine 200 mg tablet 200 mg PO DAILY lupus 02/27/21 04/27/22 History New Prescriptions to Start Prescriptions: Allergies Allergy/AdvReac Type Severity Reaction Status Date / Time No Known Allergies Allergy Verified 04/03/21 09:16 Exam Data for Last 24 hours Vital signs and Labs for Last 24 Hours: Temp Pulse Resp BP Pulse Ox 101.4 F H 90 19 12
--- NOTE | 2022-04-27 03:06 | PC.NURSE ---
PT ARRIVED TO FLOOR VIA WHEEL CHAIR AT THIS TIME
--- NOTE | 2022-04-27 06:54 | XR_ITS ---
PROCEDURE INFORMATION: Exam: XR Chest Exam date and time: 04/27/2022 5:29 AM Age: 82 years old Clinical indication: Condition or disease; Lung condition and disease; Pneumonia; Additional info: Covid 19 TECHNIQUE: Imaging protocol: Radiologic exam of the chest. Views: 1 view. COMPARISON: CR XR CHEST PORTABLE 04/26/2022 10:25 PM FINDINGS: Lungs: Similar right basilar airspace opacity. Mildly improved left basilar airspace opacity. Pleural spaces: Unremarkable. No pleural effusion. No pneumothorax. Heart/Mediastinum: Unremarkable. No cardiomegaly. Bones/joints: Unremarkable. IMPRESSION: Similar right basilar airspace opacity with mildly improved left basilar airspace opacity.
--- NOTE | 2022-04-27 07:06 | EXP.PHA.VTE ---
[facility] Pharmacy VTE Monitoring Patient Demographics Admission date: 04/26/22 Report Date: 04/27/22 Time: 07:06 Patient Allergies No Known Allergies Allergy (Verified 04/03/21 09:16) Height: 1.85 m Weight: 104.417 kg Current Active Problems (Updated 04/27/22 @ 03:27 by Kelley Mitchell RN) COVID-19 (Acute) Acute delirium (Acute) COVID-19 (Acute) Fever (Acute) OTILIO (acute kidney injury) (Acute) Dehydration (Acute) Rheumatoid arteritis (Acute) Hypertension (Acute) VTE Risk Labs: VTE Related Lab Results Hgb 16.8 g/dL (14.1-18.0) 04/26/22 22:02 Hct 50.2 % (42.0-52.0) 04/26/22 22:02 Plt Count 162 K/mm3 (142-424) 04/26/22 22:02 BUN 14 mg/dl (9-20) 04/26/22 22:02 Creatinine 1.40 mg/dl (0.66-1.25) H 04/26/22 22:02 Estimated Creat Clear 60 mL/min (50-200) 04/26/22 22:02 Was VTE Risk Assessment Performed: Yes VTE Score: 8 VTE Risk Level: Moderate Risk Prophylaxis VTE Prophylaxis Ordered?: Yes Types of VTE Prophylaxis: TEDS Knee High and Pharmacological Pharmacologic Type: Heparin
[2022-04-27 07:50] LABS: D-Dimer 0.65 ug/mL (0.0-0.5)
--- NOTE | 2022-04-27 09:55 | EXP.DC.SUM ---
General Admission date:: 04/27/22 HPI HPI HPI: Mr. Michaud is a 82 year old male with a past medical history of RA, on immunosuppressive therapy and Hypertension. He presented to the ER today secondary to acute onset of weakness associated with chills, generalized body aches and fevers that started abruptly today. 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 He reports that today with his symptoms that he went and bought a covid home test and it was positive. He brought him into the ER for further evaluation. In the ER Cxray showed atelectasis and low lung volumes. CBC was unremarkable. CRP was elevated at 23.5. Covid 19 testing was positive. The patient was noted to be febrile on admission with a temperature of 101.4. The patient has only been vaccinated x 1. The patient will be admitted with COVID 19. His oxygen on admission is 94 on room air. Due to him being on immunosuppressive therapy secondary to his RA cultures will be obtained. He meets criteria for Remdesiver given concern for possibly deterioration of symptoms. This was discussed with the patient and son at bedside. Both verbalized understanding and agreement with the plan of care. Hospital Course Hospital Course Hospital Course: 82-year-old male admitted for weakness, dehydration, COVID-positive. Treated with IV fluids and remdesivir. Received 2 doses. Had significant improvement in energy and mobility. On second day of admission, patient able to ambulate independently. Stated his energy was much better. Tolerating full p.o. intake. Remained afebrile and stable on room air. Given his improvement clinically, meeting criteria for discharge home to continue to convalesce. Seen by physical therapy and Occupational Therapy to evaluate any home health needs, patient functioning at baseline. Recommend follow-up with his PCP within 2 weeks. No changes to medication at this time. Consider daily baby aspirin for the next month to minimize risk for VTE. Exam Data for Last 24 hours Vital signs and Labs for Last 24 Hours: Temp Pulse Resp BP Pulse Ox 97.6 F 68 17 130/77 92 L 04/27/22 07:37 04/27/22 07:37 04/27/22 07:37 04/27/22 07:37 04/27/22 07:37 Laboratory Results - last 24 hr 04/26/22 22:02: WBC 7.6, RBC 5.38, Hgb 16.8, Hct 50.2, MCV 93.4, MCH 31.2, MCHC 33.4, RDW 13.1, Plt Count 162, MPV 8.1, Neut % (Auto) 81.1 H, Lymph % (Auto) 4.6 L, [place] % (Auto) 11.1 H, Eos % (Auto) 0.8, Baso % (Auto) 2.4 H, Neut # (Auto) 6.2, Lymph # (Auto) 0.4 L, Morrill # (Auto) 0.8, Eos # (Auto) 0.1, Baso # (Auto) 0.2, ESR 1 04/26/22 22:02: Sodium 131 L, Potassium 4.3, Chloride 96 L, Carbon Dioxide 25, Anion Gap 14.3, BUN 14, Creatinine 1.40 H, Estimated Creat Clear 60, Estimated GFR 49 L, Est GFR ( Amer) 59, Glucose 103 H, Calcium 8.7, Total Bilirubin 0.9, AST 37, ALT 24, Alkaline Phosphatase 87, Troponin I < 0.01, C-Reactive Protein 23.5 H, Total Protein 6.7, Albumin 4.1, Globulin 2.6, Albumin/Globulin Ratio 1.6, Amylase 72, Lipase 147, Procalcitonin 0.135 04/26/22 22:02: Lactate 1.4 04/26/22 22:02: SARS-CoV-2 (PCR) Detected A, Influenza A Untype (PCR) Not detected, Influenza Type B (PCR) Not detected 04/27/22 01:00: Urine Color Yellow, Urine Appearance Clear, Urine pH 6.0, Ur Specific [place] >= 1.030, Urine Protein Negative, Urine Glucose (UA) Negative, Urine Ketones Negative, Urine Blood Trace-i, Urine Nitrate Negative, Urine Bilirubin Negative, Urine Urobilinogen 0.2, Ur Leukocyte Esterase Negative, Urine RBC 3-5, Urine WBC Occasional, Urine Bacteria 1+, Urine Mucus 1+ 04/27/22 06:48: D-Dimer 0.65 H I & O for Last 24 hours: Intake & Output 04/24/22 04/25/22 04/26/22 04/27/22 23:59 23:59 23:59 23:59 Intake Total 360 / 360 Output Total 600 / 600 Balance -240 / -240 Weight 104.326 kg 104.417 kg Constitutional Constitutional: no acute distress *Routine HEENT
[2022-04-27 10:48] LABS: Procalcitonin 0.112 ng/mL (0.0-2.0)
--- NOTE | 2022-04-27 11:00 | HMH.PTEV ---
Physical Therapy Evaluation Rehab PT IP Evaluation Start: 04/27/22 09:29 Freq: ONCE Status: Active Protocol: Document 04/27/22 10:56 [id number] (Rec: 04/27/22 11:00 NASIM [id number]) Subjective/History History History This is the initial IP PT evaluation for Gloria Michaud. Pt is an 82 y/o male admitted to [facility] thru ED for progressive weakness. 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 Rehab PT IP Eval Objective Appearance Patient Behavior Appropriate,Cooperative Patient Orientation Name,Age,Birthday,Year, Situation Difficulty following instructions none Speech Pattern Clear,Appropriate Ambulation Patient Able to Ambulate Yes Ambulation Observation IP General Gait Pattern Observation No Deviations/Normal,Wide Based Gait Ambulation Distance (feet) 30 Ambulation Assistive Device None Ambulation Ability Independent Balance Ability to Arise Able, uses arms to help Sitting Balance Steady, safe Standing Balance Narrow stance w/o support Dynamic Sitting Balance Ability Good Dynamic Standing Balance Ability Fair Transfers Bed Transfer Ability Independent Chair Transfer Ability Independent Sit to Stand Bed Transfer Ability Independent Sit to Stand Chair Transfer Ability Independent Rehab PT IP prob,goals,plan Problems Date of Evaluation: 04/27/22 Rehab Potential Rehab Potential Innapropriate for Skilled Therapy Discharge Plan PT Discharge Plan Pt is at or close to baseline function - no skilled needs at this time - safe to dc home once medically stable G -code Required Yes Eval Complexity Eval Charge Codes 66163 - Low Complexity G Codes PT Current Status Mobility PT Current Status Modifier CH-0% impaired, limited or restricted PT Goal Status Mobility PT Goal Status Modifer CH-0% impaired, limited or restricted PHYSICIAN CERTIFICATION: I certify the specified therapy services for Gloria Michaud are required, authorized, and reviewed every 30 days.
--- NOTE | 2022-04-27 12:00 | INFXCTL.NOTE ---
late discharge due to infusing antibiotic
--- NOTE | 2022-04-27 13:21 | HMH.OTEV ---
OT Inpatient Evaluation Rehab OT IP Evaluation Start: 04/27/22 09:29 Freq: ONCE Status: Complete Protocol: Document 04/27/22 13:16 RYAN (Rec: 04/27/22 13:20 [id number] Rehab OT IP Assessment Subjective History Pt oriented x 3 on arrival. Pt admitted via ED on 04/27/22 due to COVID-19. Prior to being in the hospital, pt lived at home with his . Pt was very active. He was independent with all ADLs and IADLs. He did not use any type of AE. 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 Subjective I am ready to go home. Objective Patient Orientation Person,Place,Birthday Upper Extremity Gross ROM WFL Bed Mobility bed mobility-scooting,bed mobility - supine/sit,bed mobility - rolling Assist Level Independent Transfer Training Sit/Stand Transfer Assist Level Independent Chair Transfer Ability Supervision/Stand by Chair Transfer Technique Sit to/from Ambulatory Chair Transfer Assistive Devices None Lower Body Dressing Ability Independent Rehab OT IP prob,goals,plan Problems Date of Evaluation: 04/27/22 Rehab Potential Rehab Potential Innapropriate for Skilled Therapy Discharge Plan OT Discharge Plan Pt appears to be at his baseline with functional transfers and ADLs. Pt can return home with once medically stable per physician . Eval Complexity Eval Charge Codes 12039 - Low Complexity G Codes G -code Required No PHYSICIAN CERTIFICATION: I certify the specified therapy services for Gloria Michaud are required, authorized, and reviewed every 30 days.
--- NOTE | 2022-04-28 15:16 | CARE MANAGER ---
Spoke with patient for post-discharge phone interview. He states that he still feels bad but is better than he was. Nothing needed at this time.
== END 2022-04-27 13:45 | disposition home or self-care (01) ==
LOC: ER 21:55 → 2ND 04-27 02:45
PROVIDERS: Nurse Practitioner Family; Admitting Provider Internal Medicine Adolescent Medicine; Emergency Provider Emergency Medicine; PCP Family Medicine; Visit Provider Internal Medicine Adolescent Medicine
DX: U07.1 COVID-19 (principal); D84.9 Immunodeficiency, unspecified; I10 Essential (primary) hypertension; E86.0 Dehydration; N17.9 Acute kidney failure, unspecified; M06.9 Rheumatoid arthritis, unspecified
CPT/HCPCS: G0378; 36415; 71045; 80053; 81001; 82150; 83605; 83690; 84145; 84484; 85025; 85378; 85651; 86140; 87040; 93005; 97161; 97165; 99285; C9803; U0003; U0005

== ENCOUNTER → 2022-07-13 09:39 | Outpatient (POV) | payer MEDICARE, SELFPAY | PROVIDERS: Visit Provider Dermatology | DX: Z00.00 Encounter for general adult medical examination without abnormal findings (principal) ==

== ENCOUNTER → 2022-07-27 13:02 | Outpatient (POV) | payer MEDICARE, SELFPAY | PROVIDERS: Visit Provider Dermatology | DX: Z00.00 Encounter for general adult medical examination without abnormal findings (principal) ==

== ENCOUNTER → 2022-09-22 14:34 | Outpatient (CLI) | payer MEDICARE, SELFPAY ==
[2022-09-22 15:26] LABS: Basophils # 0.1 K/mm3 (0-0.2); Basophils % 0.9 % (0.1-2.0); Eosinophils # 0.4 K/mm3 (0.0-0.4); Hematocrit 47.6 % (42.0-52.0); Hemoglobin 15.4 g/dL (14.1-18.0); Lymphocytes # 1.2 K/mm3 (0.7-4.5); Lymphocytes % 15.3 % (10-50); Mean Corpuscular HGB Conc 32.3 g/dL (31.8-35.4); Mean Corpuscular Volume 92.9 fl (80-94); Mean Platelet Volume 8.3 fl (7.4-10.4); Monocytes # 0.5 K/mm3 (0.1-1.0); Neutrophils # 5.6 K/mm3 (1.8-7.8); Platelet Count 188 K/mm3 (142-424); Red Blood Count 5.12 M/mm3 (4.60-6.20); Red Cell Distribution Width 12.8 % (11.5-17.5); White Blood Count 7.7 K/mm3 (4.8-10.8)
[2022-09-22 16:08] LABS: Erythrocyte Sedimentation Rate 2 mm/hr (0-20)
[2022-09-22 16:43] LABS: Chloride 105 mmol/L (98-107); Potassium 4.3 mmoL/L (3.5-5.1); Sodium 136 mmol/L (136-145)
[2022-09-22 16:46] LABS: Alanine Aminotransferase 25 U/L (12-78); Albumin Level 3.7 g/dl (3.5-5.0); Albumin/Globulin Ratio 1.5 (1.1-1.8); Alkaline Phosphatase 67 U/L (38-126); Anion Gap 10.3 mEq/L (5-15); Aspartate Amino Transferase 31 U/L (17-59); Bilirubin,Total 0.6 mg/dl (0.2-1.3); Blood Urea Nitrogen 14 mg/dl (9-20); Calcium 8.7 mg/dl (8.4-10.2); Carbon Dioxide 25 mmol/L (22.0-30.0); Estimated Glomerular Filt Rate 53 ml/min (>60); GFR (African American) 64 ML/MIN (>60); Globulin 2.5 g/dL (1.3-3.2); Glucose 122 mg/dl (74-100); Total Protein,Serum 6.2 g/dl (6.3-8.2)
[2022-09-22 17:04] LABS: C-Reactive Protein 1.4 mg/L (0-4)
== END ==
PROVIDERS: PCP Family Medicine; Visit Provider Internal Medicine Rheumatology
DX: M05.79 Rheumatoid arthritis with rheumatoid factor of multiple sites without organ or systems involvement (principal); Z51.81 Encounter for therapeutic drug level monitoring
CPT/HCPCS: 36415; 80053; 85025; 85651; 86140

== ENCOUNTER → 2022-12-09 08:22 | Outpatient (POV) | payer MEDICARE, SELFPAY ==
--- NOTE | 2022-12-09 08:49 | EXP.PAIN.SOA ---
[facility] Pain Management SOAP Note Subjective:: Patient is a pleasant 82-year-old male who presents today for a 1 year follow-up. We are currently treating the patient for sacroiliitis, piriformis syndrome and rheumatoid arthritis. Today he rates his pain a 1 out of 10. Patient denies any new injury or trauma. He does state that he is doing well currently. He does state that he feels like he has daily arthritis but he does manage this with [id number] medications as needed. He has gone to physical therapy and he states that the exercises have improved his pain significantly. Patient does state he has a history of his right leg being shorter than the left and he does wear a pad to accommodate this. He also states that sleeping with a memory foam mattress has also helped with his daily aches and pains. Patient is not on any scheduled medications. His Nick is [phone]. Its been reviewed and appropriate. Review of Systems: General: No recent weight changes, no fever, no sleep disturbances Respiratory: No cough, no shortness of air, no recurring pulmonary infections Cardiovascular/peripheral vascular: No chest pain, no palpitations, no edema, no shortness of breath Gastrointestinal: No new onset incontinence, normal bowel movements reported Genitourinary: No new onset incontinence Musculoskeletal: Right hip pain Psychiatric: [Normal mood/affect] Neurological: [Denies weakness in extremities], [denies balance issues] Objective:: Physical Exam: General: Alert and oriented x3, no acute distress, pleasant and cooperative Lungs: Respirations even and unlabored, symmetrical chest expansion Eyes: PERRL Musculoskeletal: Flexion and extension of right hip somewhat guarded secondary to pain, [antalgic gait noted] Neurological: Speech clear, no gross sensory deficit Oswestry index score of 6 ORT score low risk Assessment:: Sacroiliitis, piriformis syndrome, rheumatoid arthritis Plan:: Patient continues to do well and does not require any injective therapy or medication treatments at this time. Patient will return to clinic in 1 year for reevaluation of his symptoms. Patient has been instructed to contact the clinic with any concerns before the next appointment. Dr. Stokes has reviewed this note and agrees with this plan of care. This note was dictated using voice recognition software and make contain errors or omissions. [facility] Disclaimer: The information contained in this section may have been updated after the patient was seen, as this information can be updated by other users. Medical History (Updated 05/01/22 @ 00:00 by Marco A Regan) Allergies Colon cancer History of diverticulitis History of gastroesophageal reflux (GERD) Skin cancer Surgical History (Updated 04/27/22 @ 03:27 by Kelley Mitchell RN) History of colon resection History of colonoscopy S/P appendectomy Status post cholecystectomy Family History (Updated 04/27/22 @ 03:27 by Kelley Mitchell RN) Other Diabetes Family history of GERD Hypertension Social History (Updated 04/27/22 @ 03:27 by Kelley Mitchell RN) Smoking Status: Never smoker alcohol intake: never substance use type: denies use current occupational status: employed Travel in the last 8 weeks: None household members: spouse housing: house current occupational exposures/hazards: No caffeine: Yes
[2022-12-09 08:52] VITALS: BP 142/56; PULSE 80; RESP 18; O2SAT 97; BMI 30.3
== END ==
PROVIDERS: PCP Family Medicine; Visit Provider Nurse Practitioner Family
DX: M46.1 Sacroiliitis, not elsewhere classified (principal); M06.9 Rheumatoid arthritis, unspecified; G57.00 Lesion of sciatic nerve, unspecified lower limb
CPT/HCPCS: 99212; G0463

== ENCOUNTER → 2023-01-04 15:25 | Outpatient (POV) | payer MEDICARE, SELFPAY | PROVIDERS: Visit Provider Dermatology | DX: Z00.00 Encounter for general adult medical examination without abnormal findings (principal) ==

== ENCOUNTER → 2023-07-05 15:19 | Outpatient (POV) | payer MEDICARE, SELFPAY | PROVIDERS: PCP Family Medicine; Visit Provider Dermatology | DX: Z00.00 Encounter for general adult medical examination without abnormal findings (principal) ==

== ENCOUNTER 2023-09-03 10:18 | Emergency (ER) | payer MEDICARE, OTHER, SELFPAY ==
--- NOTE | 2023-09-03 11:21 | EXP.UTC ---
Discharge Plan Disposition Patient Disposition: Home, Self-Care Condition: Good Prescriptions Prescriptions: New amoxicillin [amoxicillin] 875 mg tablet 875 mg PO Q12H Qty: 20 0RF benzonatate [benzonatate] 100 mg capsule 100 mg PO TIDP PRN (Reason: Cough) Qty: 30 0RF prednisone [prednisone] 20 mg tablet 20 mg PO BID 3 Days Qty: 6 0RF No Action amlodipine 5 mg tablet 5 mg PO DAILY benazepril 20 mg tablet 20 mg PO DAILY hydroxychloroquine 200 mg tablet 200 mg PO DAILY clotrimazole 1 % cream 1 applic TOPICAL DAILY Referrals Follow up/Referrals: Christoph Hauser MD [Primary Care Provider] - See instructions Activity Restrictions/Add. Instructions Additional Instructions/Restrictions: Drink plenty of fluids. Take tylenol or ibuprofen for pain or fever. Take the medications as directed. Follow up with your regular doctor. GO TO THE ER FOR ANY WORSENING SYMPTOMS Clinical Impressions Clinical Impression: Pharyngitis Instructions Patient Instructions: Sore Throat, DI for Pharyngitis/Tonsillopharyngitis -- Adult Discharge ED Provider: Andi Rodriguez [facility] General Stated complaint: st Time Seen by Provider: 09/03/23 11:21 History of Present Illness Provider Complaint: He states that he has had sore throat and chills for the past 3 days. Related Data Home Medications Medication Instructions Recorded Confirmed amlodipine 5 mg tablet 5 mg PO DAILY 09/03/23 09/03/23 benazepril 20 mg tablet 20 mg PO DAILY 09/03/23 09/03/23 clotrimazole 1 % topical cream 1 applic topical DAILY 09/03/23 09/03/23 hydroxychloroquine 200 mg tablet 200 mg PO DAILY 09/03/23 09/03/23 Previous Rx's Medication Instructions Recorded amoxicillin 875 mg tablet 875 mg PO Q12H #20 tabs 09/03/23 benzonatate 100 mg capsule 100 mg PO TIDP PRN Cough #30 caps 09/03/23 prednisone 20 mg tablet 20 mg PO BID 3 days #6 tabs 09/03/23 Allergies Allergy/AdvReac Type Severity Reaction Status Date / Time No Known Allergies Allergy Verified 04/03/21 09:16 [facility] Disclaimer: The information contained in this section may have been updated after the patient was seen, as this information can be updated by other users. Medical History (Updated 09/03/23 @ 11:43 by Andi Rodriguez APRN) Allergies Colon cancer History of diverticulitis History of gastroesophageal reflux (GERD) Skin cancer Surgical History (Updated 04/27/22 @ 03:27 by Kelley Mitchell RN) History of colon resection History of colonoscopy S/P appendectomy Status post cholecystectomy Family History (Updated 04/27/22 @ 03:27 by Kelley Mitchell RN) Other Diabetes Family history of GERD Hypertension Social History (Updated 04/27/22 @ 03:27 by Kelley Mitchell RN) Smoking Status: Never smoker alcohol intake: never substance use type: denies use current occupational status: retired Travel in the last 8 weeks: None household members: spouse housing: house current occupational exposures/hazards: No caffeine: Yes ROS Obtained: Yes All systems reviewed & no additional complaints except as documented Constitutional Constitutional: Reports chills and Denies fever(s) Eyes Eyes: Denies eye discharge ENT Ears, Nose, Mouth, and Throat: Reports as per HPI Cardiovascular Cardiovascular: Denies chest pain Respiratory Respiratory: Denies chest congestion and Reports cough Gastrointestinal Gastrointestingal: Reports nausea; Denies abdominal pain, constipation, cramping, diarrhea or vomiting Musculoskeletal Musculoskeletal: Denies arthralgias Integumentary/Breasts Skin/Breast: Denies rash Neurologic Neurologic: Denies paresthesias Physical Exam General General appearance: alert and in no apparent distress Head Head exam: atraumatic, normocephalic and normal inspection Eye Eye exam: Present normal appearance, PERRL and EOMI ENT ENT exam: Present mucous membranes moist and normal external ear exam Expanded ENT Exam TM/Canal exam: Bilateral TM: erythema and bulging Nose exam: Absent sinus tenderness Mouth exam: Present normal external inspection; Absent drooling Teeth exam: Present normal inspection Throat exam: Present tonsillar erythema, tonsillomegaly and tonsillar exudate Neck Neck exam: Present normal inspection, full ROM and trachea midline; Absent tenderness, meningismus or lymphadenopathy Chest Chest inspection: Present normal inspection and symmetric chest wall rise; Absent tenderness Respiratory Respiratory exam: Present normal lung sounds bilaterally; Absent respiratory distress, wheezes or stridor Cardiovascular Cardiovascular exam: Present regular rate and normal rhythm; Absent systolic murmur or diastolic murmur Abdominal Exam Abdominal exam: Present soft and normal bowel sounds; Absent distention, tenderness, guarding, rebound or rigidity Extremities Exam Extremities exam: Present normal inspection and normal capillary refill; Absent calf tenderness Back Exam Back exam: Present normal inspection and full ROM; Absent tenderness, CVA tenderness (R) or CVA tenderness (L) Neurological Exam Neurological exam: Present alert, oriented X3 and CN II-XII intact Psychiatric Psychiatric exam: Present normal affect and normal mood Skin Skin exam: Present warm, dry, intact and normal color Medical Decision Making Medical Records Medical records reviewed: No I reviewed the patient's medical records. Nick Inquiry Pt receiving controlled substance: No Lab Data Lab results reviewed: Yes I reviewed the patient's lab results.
[2023-09-03 11:30] VITALS: BP 132/67; PULSE 74; RESP 19; TEMP 36.9; O2SAT 96; BMI 31.3
[2023-09-03 11:44] VITALS: BP 132/67; PULSE 74; RESP 19; TEMP 36.9; O2SAT 96
[2023-09-03 11:51] LABS: UTC Influenza A Antigen Negative (Negative); UTC Influenza B Antigen Negative (Negative); UTC Strep Screen (Rapid) Negative (Negative)
== END 2023-09-03 11:52 | disposition home or self-care (01) ==
PROVIDERS: Emergency Provider Nurse Practitioner Family; PCP Family Medicine
DX: J02.9 Acute pharyngitis, unspecified (principal); R68.83 Chills (without fever); R05.9 Cough, unspecified; I10 Essential (primary) hypertension; K21.9 Gastro-esophageal reflux disease without esophagitis
CPT/HCPCS: 87804; 87880; 99204; 99212; G0463

== ENCOUNTER 2023-09-19 14:09 | Outpatient (CLI) | payer MEDICARE, OTHER, SELFPAY ==
--- NOTE | 2023-09-19 14:17 | XR_ITS ---
FINAL REPORT CLINICAL HISTORY: BRONCHITIS COMPARISON: 04/27/2022 FINDINGS: PA and lateral views of the chest were obtained. The heart is normal in size. There is enlargement of the central pulmonary vessels, likely stable. The lungs are clear. There is no pleural effusion or pneumothorax. No acute osseous abnormality is identified. IMPRESSION: Likely stable enlargement of central pulmonary vessels. Lungs are clear. Reviewed, Interpreted and Dictated by Mari Reynolds MD Transcribed by Siria Tran Authenticated and [facility]
== END 2023-09-19 23:59 ==
PROVIDERS: PCP Family Medicine; Visit Provider Nurse Practitioner Family
DX: J40 Bronchitis, not specified as acute or chronic (principal)
CPT/HCPCS: 71046

== ENCOUNTER 2023-12-05 08:30 | Outpatient (POV) | payer MEDICARE, OTHER, SELFPAY ==
[2023-12-05 08:41] VITALS: BP 143/67; PULSE 89; RESP 18; O2SAT 98; BMI 30.3
--- NOTE | 2023-12-05 08:50 | A.OFFVIS_ITS ---
[facility] Pain Management SOAP Note Subjective:: Patient is a pleasant 83-year-old male who presents today for 1 year follow-up. Today he rates his pain a 1 out of 10. He states overall he has done well from his last visit and is not really needing any changes in his current daily regimen. He does state that he will occasionally have an issue with his hip but overall continues to do well. His Nick has been reviewed and is appropriate. Review of Systems: General: No recent weight changes, no fever, no sleep disturbances Respiratory: No cough, no shortness of air, no recurring pulmonary infections Cardiovascular/peripheral vascular: No chest pain, no palpitations, no edema, no shortness of breath Gastrointestinal: No new onset incontinence, normal bowel movements reported Genitourinary: No new onset incontinence Musculoskeletal: Right hip pain Psychiatric: [Normal mood/affect] Neurological: [Denies weakness in extremities], [denies balance issues] Objective:: Physical Exam: General: Alert and oriented x3, no acute distress, pleasant and cooperative Lungs: Respirations even and unlabored, symmetrical chest expansion Eyes: PERRL Musculoskeletal: Flexion and extension of lumbar [spine] somewhat guarded secondary to pain, [antalgic gait noted] Neurological: Speech clear, no gross sensory deficit Assessment:: Sacroiliitis, piriformis syndrome, rheumatoid arthritis, hip pain Plan:: Patient continues to do well and does not warrant any additional interventions at this time. I have counseled the patient we will see him back in 1 year and if anything changes between now and his next visit he can call and schedule an appointment sooner. Patient will return to clinic in 1 year for reevaluation of symptoms and plan of care. Patient has been instructed to contact the clinic with any concerns before the next appointment. Dr. Stokes has reviewed this note and agrees with this plan of care. This note was dictated using voice recognition software and make contain errors or omissions. [facility] Disclaimer: The information contained in this section may have been updated after the patient was seen, as this information can be updated by other users. Medical History History of diverticulitis History of gastroesophageal reflux (GERD) Allergies Skin cancer Colon cancer Surgical History History of colonoscopy S/P appendectomy Status post cholecystectomy History of colon resection Family History Other Diabetes Family history of GERD Hypertension Social History Smoking Status: Never smoker alcohol intake: never substance use type: denies use current occupational status: retired Travel in the last 8 weeks: None household members: spouse housing: house current occupational exposures/hazards: No caffeine: Yes
== END 2023-12-05 23:59 | disposition home or self-care (01) ==
LOC: SC.PAIN 08:31
PROVIDERS: PCP Family Medicine; Visit Provider Nurse Practitioner Family
DX: M46.1 Sacroiliitis, not elsewhere classified (principal); G57.00 Lesion of sciatic nerve, unspecified lower limb; M06.9 Rheumatoid arthritis, unspecified; M25.559 Pain in unspecified hip
CPT/HCPCS: 99202; G0463

== ENCOUNTER 2023-12-13 15:11 | Outpatient (POV) | payer MEDICARE, OTHER, SELFPAY | END 2023-12-13 23:59 | disposition home or self-care (01) | LOC: SC 15:12 | PROVIDERS: PCP Family Medicine; Visit Provider Dermatology | DX: Z00.00 Encounter for general adult medical examination without abnormal findings (principal) ==

== ENCOUNTER 2024-11-19 10:00 | Outpatient (RCR) | payer MEDICARE, OTHER, SELFPAY ==
--- NOTE | 2024-11-06 10:59 | HMH.PTOPEV ---
PT Outpatient Evaluation Rehab PT Outpatient Evaluation Start: 11/06/24 10:07 Freq: Status: Active Protocol: Document 11/06/24 10:07 PJ (Rec: 11/06/24 10:59 PJ [id number]) E-signed By Darien Bobby, PT Outpatient Therapy Subjective History Subjective History Pt is an 84 yom who is referred to [facility] outpatient with cervical spine pain. He reports that this pain began approximately 6 months ago following COVID. Pt reports that the pain has progressively worsened in that time span. The pt reports that he has immense trouble turning his head to the side and one side is not worse than the other. The pt reports that he has trialed an OTC gel , which has helped the pain in his neck some but not the stiffness. The pt reports that he has no pain when he is resting his head. He reports he has a lot of difficulty when driving. 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 PMH: HTN, Colon CA, Renal Insufficiency, RA, Melanoma of Nose, GERD, DJD of Lumbar Spine New diagnosis of cancer in past 12 No months? Chief Complaint Pain,Stiff Symptom Type Ache Symptoms Relieved By OTC Meds Symptoms Aggravated By Twisting Prior Functional Limitations None Current Functional Limitations Reaching,Housework Symptom Description Intermittent,Activity Dependent Level of pain today (0-10) 7 Pain scale - at its best (0-10) 0 Pain scale - at its worst (0-10) 9 Cervical Eval Palpation Cervical Muscles R Cervical Paraspinal,L Cervical Paraspinal,R CT Junction,L CT Junction,R Upper Trapezius,L Upper Trapezius,R Thoracic Paraspinals,L Thoracic Paraspinals Cervical/Thoracic Palpation Findings Tenderness Posture Head/C-Spine Posture Sitting Position Flexed Head/C-Spine Posture Standing Position Flexed Flexibility Deficits Upper Trapezius Muscle Length (R) Severe Tightness,(L) Severe Tightness Sternocleidomastoid Muscle Length (R) Moderate Tightness,(L) Moderate Tightness Pectoralis Major Muscle Length (R) Moderate Tightness,(L) Moderate Tightness Pectoralis Minor Muscle Length (R) Severe Tightness,(L) Severe Tightness Passive Joint Mobility Cervical PIVM Dec: R OA L OA R AA L AA WNL: R C2/3 L C2/3 R C3/4 L C3/4 R C4/5 L C4/5 R C5/6 L C5/6 R C6/7 L C6/7 R C7/T1 L C7/T1 AROM Cervical Spine Extension Active Range of 35 Motion (degrees) Cervical Spine Flexion Active Range of 50 Motion (degrees) Cervical Spine Right Lateral Flexion 12 Active Range of Motion (degrees) Cervical Spine Left Lateral Flexion 19 Active Range of Motion (degrees) Cervical Spine Right Rotation Active 10 Range of Motion (degrees) Cervical Spine Left Rotation Active 12 Range of Motion (degrees) MMT Bilateral Deltoid (C5) 3 Fair Biceps Brachii Strength Grade 4 Good Wrist Extension Strength Grade 5 Normal Triceps Brachii Strength Grade 4 Good Wrist Flexion Strength Grade 5 Normal Extensor Pollicis Longus Strength Grade 5 Normal Finger Abduction Strength Grade 5 Normal DTR Rt Biceps 1+ Lt Biceps 1+ Rt Brachioradialis 1+ Lt Brachioradialis 1+ Rt Triceps 1+ Lt Triceps 1+ Special Test C-Spine Foraminal Compression (Spurling) Negative Left,Negative Right Test C-spine Verterbral Accessory Movements Central P/A [place],Right P/A that Elicit Symptoms Hackberry,Left P/A [place] C-Spine Foraminal Distraction Test Negative C-Spine Compression Test Negative Left,Negative Right Neck Disability Index Neck Disability Index Section 1: Pain Intensity The pain is fairly severe at the moment Section 2: Personal Care (washing, I can look after myself dressing, etc.) normally without causing extra pain Section 3: Lifting I can lift heavy weights but it gives extra pain Section 4: Reading I can read as much as I want to with no pain in my neck Section 5: Headaches I have no headaches at all Section 6: Concentration I can concentrate fully when I want to with no difficulty Section 7: Work I cannot do my usual work Section 8: Driving I can't drive my car as long as I want because of moderate pain in my Section 9: Sleeping I have no trouble sleeping Section 10: Recreation I am able to engage in most, but not all of my usual recreation NDI Score 12 Outpatient Therapy Assessment Impairments Problems/Impairmments Palpation Tenderness,Impaired Range of Motion,Impaired Strength,Impaired Lifting, Impaired Household Care, Impaired Work Activities, Subjective C/O Pain Prognosis Rehab Potential Good Comment w HEP compliance Clinical Impression Consistent with Diagnosis Yes Consistent with Neck pain with mobility deficits. Short Term Goals Number of Weeks 4 Decreased Palpation Tenderness Yes: 1-2 to TTP Assessment Above Increase Range of Motion Yes: Improve Lateral Flexion to 20 B and Rot to 20 B Increase Strength Yes: 3+/5 to B shoulders and ST musculature Improve Neck Disability Index Score Yes: <7 Decrease Subjective C/O Pain Yes: 5/10 with above assessment Patient to be Ind w/ HEP Yes Group Home Goals Number of Weeks 8 Decreased Palpation Tenderness Yes: 0-1/4 to TTP assessment Above Increase Range of Motion Yes: improve LF and Rotation to 30 degrees bilaterally Increase Strength Yes: 4/5 to B shoulders and ST musculature Increase Ability to Drive/Ride in Car Yes: Drive for at least 1 hour without increasing symptoms Improve Tolerance to Work Activities Yes: Normal Daily Work Activities without increasing pain Improve Neck Disability Index Score Yes: <3 Decrease Subjective C/O Pain Yes: 2-10 with above assessment Patient to be Ind w/ Advanced HEP Yes Outpatient Therapy Plan of Care Treatment Plan May Include Therapeutic Exercise Including Home Yes Exercise Program Manual Therapy Techniques Yes Neuromuscular Re-education Yes Therapeutic Activities to Return to Yes Previous Functional/Work Level Mechanical Traction Yes Thermal Modalities Yes Electrical Stimulation Yes Manual Lymphatic Drainage Yes Eval/Re-Eval Yes Frequency Times per week 1-2 Duration Number of Weeks 8 Addendums This patient is a candidate for social No or vocational rehab? Patient/Guardian verbally acknowledges Yes understanding of treatment program and consents to further treatment? Patient/Guardian verbally acknowledges Yes understanding of diagnosis, prognosis and goals for treatment? Eval Complexity PT Charges 84147 - Moderate Complexity Shoulder/Elbow Eval Shoulder Objective Measurements Elbow Objective Measurements PHYSICIAN CERTIFICATION: I certify the specified therapy services for Gloria Michaud are required, authorized, and reviewed every 30 days.
== END 2024-11-19 23:59 | disposition home or self-care (01) ==
LOC: PT 10:00
PROVIDERS: PCP Family Medicine; Visit Provider Family Medicine
DX: M54.2 Cervicalgia (principal)
CPT/HCPCS: 97110; 97163

== ENCOUNTER 2024-12-20 10:00 | Outpatient (RCR) | payer MEDICARE, OTHER, SELFPAY ==
--- NOTE | 2024-12-11 09:54 | HMH.RHREAS ---
Rehab Reassessment Rehab OP Re-assessment Start: 11/22/24 10:42 Freq: Status: Active Protocol: Document 12/11/24 09:17 PJ (Rec: 12/11/24 09:53 PJ [id number]) E-signed By Darien Bobby, PT Neck Disability Index Neck Disability Index Section 1: Pain Intensity The pain is moderate at the moment Section 2: Personal Care (washing, I can look after myself dressing, etc.) normally without causing extra pain Section 3: Lifting I can lift heavy weights but it gives extra pain Section 4: Reading I can't read as much as I want because of moderate pain in my neck Section 5: Headaches I have slight headaches, which come infrequently Section 6: Concentration I can concentrate fully when I want to with no difficulty Section 7: Work I can do most of my usual work , but no more Section 8: Driving I can drive my car without any neck pain Section 9: Sleeping I have no trouble sleeping Section 10: Recreation I am able to engage in all my recreation activities with some pain in NDI Score 10 Rehab Re-assessment Subjective Subjective Pt reports that he is nearly 50% improved this date. Reports that he is not having nearly as much pain into his neck compared to before beginning PT. Reports that he believes his motion has also improved. Pt reports that he no longer has any trouble when driving. Reports that he would like to continue with PT for another month. Pt reports 3/10 pain throughout today's reassessment. Objective Objective Notes NDI: 10 (12 on IE) ROM: - Cervical Flexion: 55 - Cervical Extension: 20 - Cervical LF: R 25 L 21 - Cervical Rotation: R 28 L 23 MMT: - Shoulder ABD 4/5 - Shoulder flexion 4/5 - Rhomboids B 4/5 TTP: 1/4 to Cervical paraspinals Assessment Progress Assessment Progressing as Expected Assessment Notes Pt has undergone one month of formal Physical Therapy so far , consisting of scapulothoracic strengthening, cervical mobility exercises, and cervical motor control. The pt has demonstrated modest improvements in neck mobility , strength and pain levels. However, he continues to present below baseline in these areas. He would continue to benefit from skilled PT to continue to address his remaining impairments. Patient goals met ST,2,3,5,6 LT,3,4,6 Plan Plan Continue as per initial POC Frequency of Therapy 1-2/week Duration of therapy 4 weeks Time and Billing Re-Eval Time 10 Re-Eval Billing Units 0 Charge for PT reassessment? No PHYSICIAN CERTIFICATION: I certify the specified therapy services for Gloria Michaud are required, authorized, and reviewed every 30 days.
== END 2024-12-20 23:59 | disposition home or self-care (01) ==
LOC: PT 10:00
PROVIDERS: PCP Family Medicine; Visit Provider Family Medicine
DX: M54.2 Cervicalgia (principal)
CPT/HCPCS: 97110

== ENCOUNTER 2025-01-18 11:00 | Outpatient (RCR) | payer MEDICARE, OTHER, SELFPAY ==
--- NOTE | 2025-01-08 10:37 | HMH.RHREAS ---
Rehab Reassessment Rehab OP Re-assessment Start: 01/08/25 10:00 Freq: Status: Active Protocol: Document 01/08/25 10:16 PJ (Rec: 01/08/25 10:37 PJ [id number]) E-signed By Darien Bobby PT Neck Disability Index Neck Disability Index Section 1: Pain The pain is moderate at the moment Intensity Section 2: Personal I can look after myself normally without causing extra Care (washing, pain dressing, etc.) Section 3: Lifting I can lift heavy weights without extra pain Section 4: Reading I can't read as much as I want because of moderate pain in my neck Section 5: Headaches I have slight headaches, which come infrequently Section 6: I can concentrate fully when I want to with no Concentration difficulty Section 7: Work I can do most of my usual work, but no more Section 8: Driving I can drive my car as long as I want with moderate pain in my neck Section 9: Sleeping I have no trouble sleeping Section 10: I am able to engage in all my recreation activities Recreation with some pain in NDI Score 11 Rehab Re-assessment Subjective Subjective Pt reports that he is 50% improved this date. Reports that he continues to have difficulty turning his head to each side but it has improved some. Reports that turning his head while driving has gotten less painful. Reports that he does his home exercises but not often. Reports that his pain is a 2/10 this date. Reports that he would like to continue PT a little longer. Objective Objective Notes NDI: 11 (10 at last RA) ROM: - Cervical Flexion: 55 - Cervical Extension: 20 - Cervical LF: R 23 L 23 - Cervical Rotation: R 29 L 23 MMT: - Shoulder ABD 4/5 - Shoulder flexion 4/5 - Rhomboids B 4/5 TTP: 07/28 to Cervical paraspinals Assessment Progress Assessment No Progress Assessment Notes Pt has made no progress since prior reassessment and has only attended 1 PT visit since last reassessment. Pt educated on importance of attending PT sessions and doing home exercises regularly for optimal outcomes. Pt would continue to benefit from skilled PT at this time with a focus on preparation for discharge to home exercise program. Patient goals met ST,2,3,5,6 LT,3,4,6 Plan Plan Continue as per initial POC. Preparation for discharge to [facility]. Frequency of Therapy 1-2/week Duration of therapy 4 weeks Time and Billing Re-Eval Time 10 Re-Eval Billing 0 Units Charge for PT No reassessment? PHYSICIAN CERTIFICATION: I certify the specified therapy services for Gloria Michaud are required, authorized, and reviewed every 30 days.
== END 2025-01-18 23:59 | disposition home or self-care (01) ==
LOC: PT 11:00
PROVIDERS: PCP Family Medicine; Visit Provider Family Medicine
DX: M54.2 Cervicalgia (principal)
CPT/HCPCS: 97110; 97530

== ENCOUNTER 2025-01-23 12:52 | Outpatient (RCR) | payer MEDICARE, OTHER, SELFPAY | END 2025-01-23 23:59 | disposition home or self-care (01) | LOC: PT 12:52 | PROVIDERS: PCP Family Medicine; Visit Provider Family Medicine | DX: M54.2 Cervicalgia (principal) | CPT/HCPCS: 97110 ==

== ENCOUNTER 2025-04-02 09:54 | Day surgery (SDC) | payer MEDICARE, OTHER, SELFPAY ==
[2025-03-29 11:35] VITALS: BMI 30.3
[2025-04-02 10:29] VITALS: BP 157/82; PULSE 71; RESP 18; TEMP 36.6; O2SAT 96
[2025-04-02] MEDS: TROPICAMIDE 1% OPTH SOLN 2ML OP (10:34)
[2025-04-02] MEDS: APRACLONIDINE 0.5% OPHTH SOLN 5ML OP (10:35)
[2025-04-02] MEDS: TETRACAINE 0.5% OPTH SOL 15ML OP (10:35)
[2025-04-02] MEDS: PHENYLEPHRINE 2.5% OPHTH SOLN 2ML OP (10:35)
--- NOTE | 2025-04-02 12:55 | HMH.PROCNOTE ---
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 The patient has noticed that the vision has decreased from the previous good level postop. The patient reports that he/she is having trouble reading and/or driving or that glare is giving them a problem. On exam, the patient was found to have visually significant posterior capsular opacification. The treatment options, risks and benefits were explained and the patient elected to have YAG laser capsulotomy in an attempt to improve the vision. Of note, the best corrected visual acuity is in the 23/30 or worse range by refraction or glare testing. The eye was dilated and 1 drop of 0.5% Iopidine applied. YAG laser energy was applied to the posterior capsular bag with good formation of an opening and no complications were noted. The patient will be seen back for follow up in 2 weeks 57 pulses, 188 mj
== END 2025-04-02 12:17 | disposition home or self-care (01) ==
PROVIDERS: PCP Family Medicine; Visit Provider Ophthalmology
PROC: (CPT 66821; principal; 2025-04-02 13:30)
DX: H26.491 Other secondary cataract, right eye (principal); H53.8 Other visual disturbances; M06.9 Rheumatoid arthritis, unspecified; Z87.891 Personal history of nicotine dependence; Z79.52 Long term (current) use of systemic steroids; Z79.899 Other long term (current) drug therapy
CPT/HCPCS: 66821

== ENCOUNTER 2025-04-17 14:59 | Outpatient (CLI) | payer MEDICARE, OTHER, SELFPAY ==
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
--- OUTSIDE RECORDS SUMMARY | 2025-04-17 15:02 | XMS_ITS | Clinical Summary ---
Author Organization [facility] Address [address] [place] [address] Care Team Providers Care Manager Of Applications Development Name Role Phone Unavailable Primary Care Provider Unavailabl e Social History Tobacco Use Types Packs/Day Years Used Date Smoking Tobacco: Never Assessed Abuse Screen Answer Date Recorded Unsafe at Home or Work/School Not on file Feels Threatened by Someone? Not on file 05/2023 Does Anyone Keep You from Co ntacting Others or Doint Things Outside the Home? Not on file 05/04/2023 Physical Sign of Abuse Present Not on file 1 Housing Stability Answer Date Recorded Current Living Arrangements Not on file 04/24 Potentially Unsafe Housing Conditions Not on raphael e 05/04/2023 Family and Community Support Answer Bryan e Recorded Help with Day-to-Day Activities Not on file 05/04/2023 Lonely or Isolated Not on file 05/04/2023 Employment Answer Date Recorded Do you want help finding or keeping work or a frederick b? Not on file 05/04/2023 Disabilities Answer Date Recorded Concentrating, Remembering, or Making Decisions Difficulty Not on file 05/04/2023 Doing Errands Independently Difficulty Not on fi le 05/04/2023 Education Answer Date Recorded Help with school or training? Not on file Preferred Language Not on file 05/04/2023 Sex and Gender Information Value Date Recorded Sex Assigned at Not on file Legal Sex Male 12:09 PM EDT Gender Identity Not on file Sexual Orientation Not on file Plan of Treatment Health Maintenance Due Date Last Done Comments ANNUAL PHYSICAL 1940 TDAP/TD VACCINES (1 - Tdap) 02/25/1959 Pneumococcal Vaccine 50+ (1 of 1 - PCV) 02/25/1990 ZOSTER VACCINE (1 of 2) 02/25/1990 RSV Vaccine - Adults (1 - 1-dose 75+ series) 5 INFLUENZA VACCINE 02/22/2025 COVID-19 Vaccine ( season) 2025
--- NOTE | 2025-04-17 15:03 | XR_ITS ---
FINAL REPORT CLINICAL HISTORY: NECK PAIN FINDINGS: CERVICAL SPINE 5 views were obtained. There is no prior exam for comparison. There is no acute fracture or malalignment. Vertebral body heights are preserved. Multilevel degenerative disc disease is most pronounced at C6-7. Precervical soft tissues are unremarkable. IMPRESSION: Degenerative change without acute osseous abnormality of the cervical spine. Reviewed, Interpreted and Dictated by Mari Reynolds MD Transcribed by Siria Tran Authenticated and [facility]
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
[2025-04-17 16:29] LABS: Hematocrit 46.9 % (42.0-52.0); Hemoglobin 15.8 g/dL (14.1-18.0); Immature Granulocytes % 0.4 %; Mean Corpuscular HGB Conc 33.7 g/dL (31.8-35.4); Mean Corpuscular Hemoglobin 30.6 pg (27.0-31.2); Mean Corpuscular Volume 90.7 fl (80-94); Nucleated Red Blood Cells % 0 %; Platelet Count 164 K/mm3 (142-424); Red Blood Count 5.17 M/mm3 (4.60-6.20); Red Cell Distribution Width-SD 39.6 fL; White Blood Count 7.7 K/mm3 (4.8-10.8)
[2025-04-17 17:41] LABS: Alanine Aminotransferase 21 U/L (12-78); Albumin Level 4.2 g/dl (3.5-5.0); Albumin/Globulin Ratio 1.8 (1.1-1.8); Alkaline Phosphatase 59 U/L (38-126); Anion Gap 12.5 mEq/L (5-15); Aspartate Amino Transferase 34 U/L (17-59); Bilirubin,Total 0.9 mg/dl (0.2-1.3); Blood Urea Nitrogen 17 mg/dl (9-20); Calcium 9.6 mg/dl (8.4-10.2); Carbon Dioxide 23 mmol/L (22.0-30.0); Chloride 104 mmol/L (98-107); Creatinine,Serum 1.20 mg/dl (0.66-1.25); Estimated Glomerular Filt Rate 58 ml/min (>60); GFR (African American) 70 ML/MIN (>60); Globulin 2.4 g/dL (1.3-3.2); Glucose 92 mg/dl (74-100); Potassium 4.5 mmoL/L (3.5-5.1); Sodium 135 mmol/L (136-145); Total Protein,Serum 6.6 g/dl (6.3-8.2)
[2025-04-17 17:47] LABS: C-Reactive Protein 1.8 mg/L (0-4)
== END 2025-04-17 23:59 | disposition home or self-care (01) ==
LOC: LAB 15:00
PROVIDERS: PCP Family Medicine; Visit Provider Internal Medicine Rheumatology
DX: M47.812 Spondylosis without myelopathy or radiculopathy, cervical region (principal); M05.79 Rheumatoid arthritis with rheumatoid factor of multiple sites without organ or systems involvement; R53.83 Other fatigue; Z51.81 Encounter for therapeutic drug level monitoring
CPT/HCPCS: 36415; 72050; 80053; 85025; 85651; 86140